=== PATIENT | female | born 1980 | race Caucasian/White ===

== ENCOUNTER 2016-04-21 10:25 | Emergency (ER) | payer MEDICAID ==
--- NOTE | 2016-04-21 10:48 | ER Document Report ---
ED Medical Screen (RME) - General Stated Complaint: ABDOMINAL PAIN Mode of Arrival: Ambulatory Information source: Patient Notes: Patient complains of lower abdominal cramping that started this morning. Patient is currently 6 weeks . Patient denies any vaginal bleeding, discharge or urinary symptoms. I have greeted and performed a rapid initial assessment of this patient. A comprehensive ED assessment and evaluation of the patient, analysis of test results and completion of the medical decision making process will be conducted by additional ED providers. TRAVEL OUTSIDE OF THE [place] IN LAST 30 DAYS: No - Related Data Allergies/Adverse Reactions: acetaminophen [From Vicodin] Allergy (Verified 04/21/16 10:47) hydrocodone bitartrate [From Vicodin] Allergy (Verified 04/21/16 10:47) Penicillins Allergy (Verified 04/21/16 10:47) Past Medical History Pulmonary Medical History: Reports: Hx Asthma Denies: Hx Tuberculosis Psychiatric Medical History: Reports: Hx Anxiety, Hx Depression Past Surgical History: Reports: Hx Section, Hx Cholecystectomy - Immunizations Hx Diphtheria, Pertussis, Tetanus Vaccination: Yes Physical Exam - Vital signs Vitals: Temp Pulse Resp BP 98.0 F 74 18 113/59 L 04/21/16 10:40 04/21/16 10:40 04/21/16 10:40 04/21/16 10:40 - Abdominal Tenderness: Tender - Lower abdomen Course - Vital Signs Vital signs: Temp Pulse Resp BP Pulse Ox 98.0 F 74 18 113/59 L 04/21/16 10:40 04/21/16 10:40 04/21/16 10:40 04/21/16 10:40
[2016-04-21 11:53] LABS: ABSOLUTE EOSINOPHILS # (AUTO) 0.1 10^3/uL (0.0-0.6); ABSOLUTE LYMPHOCYTES (AUTO) 1.7 10^3/uL (0.5-4.7); ABSOLUTE MONOCYTES (AUTO) 0.5 10^3/uL (0.1-1.4); ABSOLUTE NEUT (AUTO) 5.5 10^3/uL (1.7-8.2); BASOPHILS % (AUTO) 0.6 % (0-2); EOSINOPHILS % (AUTO) 1.7 % (0-6); HEMATOCRIT 38.1 % (36.0-47.0); HEMOGLOBIN 12.1 g/dL (12.0-15.5); HGB HCT DIFFERENCE -1.8; LYMPHOCYTES % (AUTO) 21.2 % (13-45); MEAN CORPUSCULAR HEMOGLOBIN 29.8 pg (27.0-33.4); MEAN CORPUSCULAR HGB CONC 31.6 g/dL (32.0-36.0); MEAN CORPUSCULAR VOLUME 94 fl (80-97); MONOCYTES % (AUTO) 6.4 % (3-13); RED BLOOD COUNT 4.05 10^6/uL (3.72-5.28); RED CELL DISTRIBUTION WIDTH 13.2 % (11.5-14.0); SEGMENTED NEUTROPHILS % (AUTO) 70.1 % (42-78); WHITE BLOOD COUNT 7.8 10^3/uL (4.0-10.5)
[2016-04-21 12:00] LABS: APPEARANCE,URINE CLEAR; BILIRUBIN,URINE NEGATIVE (NEGATIVE); GLUCOSE, URINE NEGATIVE (NEGATIVE); KETONES,URINE NEGATIVE (NEGATIVE); LEUKOCYTE ESTERASE,URINE NEGATIVE (NEGATIVE); NITRITE,URINE NEGATIVE (NEGATIVE); PROTEIN,URINE NEGATIVE (NEGATIVE); URINE SPECIFIC GRAVITY 1.001; UROBILINOGEN,URINE NEGATIVE mg/dL (<2.0)
--- NOTE | 2016-04-21 12:05 | ER Document Report ---
ED General - General Chief Complaint: Abdominal Pain Stated Complaint: ABDOMINAL PAIN Time seen by provider: 11:55 Mode of Arrival: Ambulatory Information source: Patient Notes: 35-year-old female last menstrual period March 08 who reports intermittent sharp crampy lower abdominal pain in the midline beginning about 4:00 this morning. The second regnancy first one was full-term . She reports no vaginal bleeding or discharge. She denies fever, chills, nausea, vomiting, cough, shortness breath, chest pain, or back pain. She reports a previous problems with this or pain like this Physical Exam: General: Alert, appears well. HEENT: Normocephalic. Atraumatic. PERRLA. Extraocular movements intact. Oropharynx clear. Neck: Supple. Non-tender. Respiratory: No respiratory distress. Clear and equal breath sounds bilaterally. Cardiovascular: Regular rate and rhythm. Abdominal: Normal Inspection. Soft, mild periumbilical and suprapubic tenderness no distension. Normal Bowel Sounds. Back: Non-tender. No deformity or step off. Pelvic exam. Normal external female genitalia. Trace amount of white discharge and vagina. No cervical motion tenderness. Os closed. No adnexal masses or tenderness. No uterine tenderness. Extremities: Moves all four extremities. Upper extremities: Normal inspection. Non-tender. Normal color. Normal ROM. Normal temperature. Lower extremities: Normal inspection. Non-tender. No edema. Normal color. Normal ROM. Normal temperature. Neurological: Cranial nerves II-XII grossly intact bilaterally. Strength 5/5 throughout. Sensation intact to light touch. Normal cognition. AAOx4. Normal speech. Psychological: Normal affect. Normal Mood. Skin: Warm. Dry. Normal color. TRAVEL OUTSIDE OF THE [place] IN LAST 30 DAYS: No - Related Data Allergies/Adverse Reactions: acetaminophen [From Vicodin] Allergy (Verified 04/21/16 10:47) hydrocodone bitartrate [From Vicodin] Allergy (Verified 04/21/16 10:47) Penicillins Allergy (Verified 04/21/16 10:47) Past Medical History - General Information source: Patient - Social History Smoking Status: Never Smoker Chew tobacco use (# tins/day): No Frequency of alcohol use: None Drug Abuse: None Family History: Reviewed & Not Pertinent Patient has suicidal ideation: No Patient has homicidal ideation: No Pulmonary Medical History: Reports: Hx Asthma Denies: Hx Tuberculosis Renal/ Medical History: Denies: Hx Peritoneal Dialysis Psychiatric Medical History: Reports: Hx Anxiety, Hx Depression Past Surgical History: Reports: Hx Section, Hx Cholecystectomy - Immunizations Hx Diphtheria, Pertussis, Tetanus Vaccination: Yes Physical Exam - Vital signs Vitals: Temp Pulse Resp BP 98.0 F 74 18 113/59 L 04/21/16 10:40 04/21/16 10:40 04/21/16 10:40 04/21/16 10:40 Course - Re-evaluation Re-evalutation: 04/21/16 14:05 OB ultrasound shows 6 week 5 day IUP a small subchorionic bleed patient did not have any vaginal bleeding on exam. Her Darren had no tenderness concerning for appendicitis, renal colic, or other acute abdominal pathology. Patient is cautioned that we have not completely excluded ectopic if she had a twin gestation but this would be extremely remote. He is cautioned that she may go on have a miscarriage but there is nothing that she can do either way about that. She is instructed follow with [facility] for recheck within the next few days or return to emergency department for further problems. Patient has remained nontoxic and hematemesis stable during her stay in emergency department - Vital Signs Vital signs: Temp Pulse Resp BP Pulse Ox 98.0 F 74 18 113/59 L 04/21/16 10:40 04/21/16 10:40 04/21/16 10:40 04/21/16 10:40 - Laboratory Result Diagrams: 04/21/16 11:00 04/21/16 11:00 Laboratory results interpreted by me: 04/21/16 04/21/16 04/21/16 11:00 11:00 11:00 MCHC 31.6 L Beta HCG, Quant 86831.00 H Urine Blood SMALL H 04/21/16 14:05 Wet prep negative for Trichomonas or yeast - Diagnostic Test Radiology reviewed: Reports reviewed Discharge - Discharge Clinical Impression: First trimester Abdominal pain Qualifiers: Abdominal location: unspecified location Qualified Code(s): R10.9 - Unspecified abdominal pain Condition: Stable Disposition: HOME, SELF-CARE Instructions: Abdominal Pain ([facility]) Additional Instructions: You are . care is best started as early in as possible. If you're unsure about continuing this , you should discuss this with your physician or with sports medicine masseur at [facility]. You should take only medications approved by your physician. Acetaminophen can safely be taken for minor pains. As a rule, medication for chronic conditions such as asthma or seizures can safely be continued. You should discuss with the physician every medicine you take. Any regular exercise program can be continued. Talk to your physician, however, before engaging in competitive or demanding sports. Alcohol, smoking, and "street drugs" are dangerous to your baby. Cocaine is especially dangerous. Don't use any illicit drugs! Referrals: APRIL NELSON MD [ACTIVE STAFF] - Follow up as needed
[2016-04-21 12:16] LABS: ALANINE AMINOTRANSFERASE 22 U/L (9-52); ALBUMIN 3.8 g/dL (3.5-5.0); ALKALINE PHOSPHATASE 51 U/L (38-126); ANION GAP 11 (5-19); ASPARTATE AMINO TRANSFERASE 28 U/L (14-36); BILIRUBIN,TOTAL 0.4 mg/dL (0.2-1.3); BLOOD UREA NITROGEN 8 mg/dL (7-20); CARBON DIOXIDE 25 mmol/L (22-30); CHLORIDE 103 mmol/L (98-107); CREATININE RESULT 0.58 mg/dL (0.52-1.25); GLUCOSE 79 mg/dL (75-110); SODIUM 138.8 mmol/L (137-145); TOTAL PROTEIN 6.5 g/dL (6.3-8.2)
[2016-04-21 14:19] VITALS: BP 103/54
[2016-04-21 14:20] LABS: CHLAM PCR NOT DETECTED (NOT DETECT)
== END 2016-04-21 14:18 | disposition home or self-care (01) ==
LOC: ER 10:25
DX: O26.91 Pregnancy related conditions, unspecified, first trimester (principal); R10.9 Unspecified abdominal pain; Z3A.01 Less than 8 weeks gestation of pregnancy; Z88.6 Allergy status to analgesic agent; Z88.0 Allergy status to penicillin; Z90.49 Acquired absence of other specified parts of digestive tract
CPT/HCPCS: 36415; 76817; 80053; 81001; 84702; 85025; 86900; 86901; 87210; 87491; 87591; 99284

== ENCOUNTER 2016-11-10 14:27 | Emergency (ER) | payer MEDICAID ==
[2016-11-10 14:36] VITALS: BP 121/70
--- NOTE | 2016-11-10 15:04 | ER Document Report ---
ED General - General Chief Complaint: Skin Problem Stated Complaint: LEG PAIN Time Seen by Provider: 11/10/16 15:01 Information source: Patient Notes: Patient complains of left leg pain. Pain is mild to moderate. It does radiate down the left leg. It is worse when touched and better when left alone. It is a sharp pain as well as a dull ache. No fevers. Patient is currently 35 weeks . She was diagnosed with an infected hair follicle yesterday and placed on Keflex but felt that there was some worsening redness so she came for evaluation. TRAVEL OUTSIDE OF THE [place] IN LAST 30 DAYS: No - Related Data Allergies/Adverse Reactions: acetaminophen [From Vicodin] Allergy (Verified 11/10/16 14:32) hydrocodone bitartrate [From Vicodin] Allergy (Verified 11/10/16 14:32) Penicillins Allergy (Verified 11/10/16 14:32) Past Medical History - General Information source: Patient - Social History Smoking Status: Never Smoker Frequency of alcohol use: None Drug Abuse: None Family History: Reviewed & Not Pertinent Patient has suicidal ideation: No Patient has homicidal ideation: No Pulmonary Medical History: Reports: Hx Asthma Denies: Hx Tuberculosis Renal/ Medical History: Denies: Hx Peritoneal Dialysis Psychiatric Medical History: Reports: Hx Anxiety, Hx Depression Past Surgical History: Reports: Hx Section, Hx Cholecystectomy - Immunizations Hx Diphtheria, Pertussis, Tetanus Vaccination: Yes Review of Systems - Review of Systems Constitutional: denies: Chills, Fever Cardiovascular: denies: Chest pain, Palpitations Respiratory: denies: Cough, Short of breath Gastrointestinal: denies: Diarrhea, Vomiting Physical Exam - Vital signs Vitals: Temp Pulse Resp BP Pulse Ox 99.4 F 92 16 121/70 99 11/10/16 14:34 11/10/16 14:34 11/10/16 14:34 11/10/16 14:34 11/10/16 14:34 Interpretation: Normal - General General appearance: Appears well, Alert - Respiratory Respiratory status: No respiratory distress Chest status: Nontender Breath sounds: Normal Chest palpation: Normal - Cardiovascular Rhythm: Regular Heart sounds: Normal auscultation Murmur: No - Abdominal Inspection: Normal Distension: No distension Bowel sounds: Normal Tenderness: Nontender Organomegaly: No organomegaly - Skin Skin Temperature: Warm Skin Moisture: Dry Notes: Patient has a small approximate 1 cm indurated area on the left inner upper thigh consistent with an early follicular abscess. Course - Re-evaluation Re-evalutation: 11/10/16 15:03 I used a 25-gauge needle to unroof the top of the follicular abscess with some mild drainage of purulent bloody fluid. - Vital Signs Vital signs: Temp Pulse Resp BP Pulse Ox 99.4 F 92 16 121/70 99 11/10/16 14:34 11/10/16 14:34 11/10/16 14:34 11/10/16 14:34 11/10/16 14:34 Discharge - Discharge Clinical Impression: Folliculitis Condition: Stable Disposition: HOME, SELF-CARE Instructions: Folliculitis ([facility]) Additional Instructions: Please follow-up with your [facility] as scheduled
== END 2016-11-10 15:06 | disposition home or self-care (01) ==
LOC: ER 14:27
DX: O26.93 Pregnancy related conditions, unspecified, third trimester (principal); L73.9 Follicular disorder, unspecified; M79.604 Pain in right leg; Z3A.35 35 weeks gestation of pregnancy; Z88.0 Allergy status to penicillin; Z88.6 Allergy status to analgesic agent
CPT/HCPCS: 99282

== ENCOUNTER 2016-11-23 16:21 | Outpatient (CLI) | payer MEDICAID ==
--- NOTE | 2016-11-23 17:00 | Non Stress Test Report ---
Non Stress Test Datetime Report Generated by CPN: 11/23/2016 17:00 DEMOGRAPHIC EGA NST: 37.1 INDICATION Indication for Study: Ordered by Provider MONITORING Monitor Explained: Monitor Explained; Test Explained; Patient Verbalized Understanding Time on Monitor: 11/23/2016 16:34 Time off Monitor: 11/23/2016 16:54 NST Duration: 20 NST INTERVENTIONS NST Interventions: PO Hydration Physician Notified NST: Dr. Bang BABY A: [id number] BABY A Movement : Present Contraction Frequency : denies FHR Baseline : 125 Accelerations : 15X15 Decelerations : None Variability : Moderate 6-25bpm NST Review: Meets Criteria for Reactive NST NST Review and Verified By : MARCIA Villar Results: Reactive NST REPORT Report Trigger: Send Report
== END 2016-11-23 16:58 | disposition home or self-care (01) ==
LOC: LC 16:21
PROVIDERS: ATTEND Obstetrics & Gynecology
PROC: 4A1HXCZ Monitoring of Products of Conception, Cardiac Rate, External Approach (ICD-10-PCS; principal; 2016-11-23)
DX: Z34.03 Encounter for supervision of normal first pregnancy, third trimester (principal)
CPT/HCPCS: 59025

== ENCOUNTER 2016-11-26 16:58 | Outpatient (CLI) | payer MEDICAID | END 2016-11-26 18:32 | disposition home or self-care (01) | LOC: LC 16:58 | PROVIDERS: ATTEND Student in an Organized Health Care Education/Training Program | PROC: 4A1HXCZ Monitoring of Products of Conception, Cardiac Rate, External Approach (ICD-10-PCS; principal; 2016-11-26) | DX: O99.333 Smoking (tobacco) complicating pregnancy, third trimester (principal); O09.523 Supervision of elderly multigravida, third trimester; F17.210 Nicotine dependence, cigarettes, uncomplicated; Z3A.37 37 weeks gestation of pregnancy | CPT/HCPCS: 59025 ==

== ENCOUNTER 2016-11-30 19:26 | Inpatient (IN) | payer MEDICAID ==
[2016-11-30] MEDS ORDERED: RINGERS SOLUTION,LACTATED 1,000 ML IV PRN (20:00)
[2016-11-30 20:04] LABS: AMNISURE (ROM) POSITIVE (NEGATIVE)
[2016-11-30 20:06] LABS: APPEARANCE,URINE CLEAR; BILIRUBIN,URINE NEGATIVE (NEGATIVE); GLUCOSE, URINE NEGATIVE (NEGATIVE); KETONES,URINE NEGATIVE (NEGATIVE); LEUKOCYTE ESTERASE,URINE NEGATIVE (NEGATIVE); NITRITE,URINE NEGATIVE (NEGATIVE); PROTEIN,URINE NEGATIVE (NEGATIVE); URINE SPECIFIC GRAVITY 1.003; UROBILINOGEN,URINE NEGATIVE mg/dL (<2.0)
[2016-11-30] MEDS ORDERED: CITRIC ACID/SODIUM CITRATE ORAL SOLN 15 ML UDCUP ONE (20:15)
[2016-11-30] MEDS ORDERED: MISOPROSTOL 0.2 MG TABLET ONE (20:15)
[2016-11-30 20:21] LABS: URINE BARBITURATES SCREEN NEGATIVE; URINE METHADONE SCREEN NEGATIVE; URINE PHENCYCLIDINE SCREEN NEGATIVE
[2016-11-30] MEDS ORDERED: CLINDAMYCIN 900 MG/D5W RTU 50 ML IV ONE (20:24)
[2016-11-30 20:28] LABS: URINE OPIATES LOW UNCONFIRMED POSITIVE
[2016-11-30] MEDS ORDERED: KETOROLAC TROMETHAMINE INJ/PF 30 MG/1 ML SDV ONE (20:34)
[2016-11-30] MEDS ORDERED: OXYTOCIN 10 UNIT/ML VIAL ONE (20:34)
[2016-11-30] MEDS ORDERED: ACETAMINOPHEN 100 ML IV ONE (20:35)
[2016-11-30] MEDS ORDERED: OXYTOCIN/NORMAL SALINE 20 UNIT/1,000 ML RTUINJ ONE (20:35)
[2016-11-30] MEDS ORDERED: ONDANSETRON HCL INJ/PF 4 MG/2 ML SDV ONE (20:35)
[2016-11-30] MEDS ORDERED: MIDAZOLAM 2 MG/2 ML INJ ONE (20:35)
[2016-11-30] MEDS ORDERED: FENTANYL CITRATE INJ/PF 100 MCG/2 ML AMPUL ONE ×2 (20:35→23:27)
[2016-11-30] MEDS ORDERED: EPHEDRINE SULFATE INJ 50 MG/1 ML AMPULE ONE (20:35)
[2016-11-30] MEDS ORDERED: FENTANYL CITRATE INJ/PF 250 MCG/5 ML AMPULE ONE (20:35)
[2016-11-30 20:52] LABS: ABSOLUTE EOSINOPHILS # (AUTO) 0.2 10^3/uL (0.0-0.6); ABSOLUTE LYMPHOCYTES (AUTO) 2.5 10^3/uL (0.5-4.7); ABSOLUTE MONOCYTES (AUTO) 0.6 10^3/uL (0.1-1.4); ABSOLUTE NEUT (AUTO) 8.6 10^3/uL (1.7-8.2); BASOPHILS % (AUTO) 0.3 % (0-2); EOSINOPHILS % (AUTO) 1.4 % (0-6); HEMOGLOBIN 9.3 g/dL (12.0-15.5); HGB HCT DIFFERENCE -0.1; LYMPHOCYTES % (AUTO) 21.1 % (13-45); MEAN CORPUSCULAR HEMOGLOBIN 29.6 pg (27.0-33.4); MEAN CORPUSCULAR HGB CONC 33.3 g/dL (32.0-36.0); MEAN CORPUSCULAR VOLUME 89 fl (80-97); MONOCYTES % (AUTO) 5.2 % (3-13); RED BLOOD COUNT 3.15 10^6/uL (3.72-5.28); RED CELL DISTRIBUTION WIDTH 13.7 % (11.5-14.0); WHITE BLOOD COUNT 11.9 10^3/uL (4.0-10.5)
[2016-11-30] MEDS ORDERED: KETAMINE HCL INJ 500 MG/10 ML VIAL ONE (20:56)
[2016-11-30] MEDS ORDERED: MEASLES,MUMPS&RUBELLA VACC/PF 0.5 ML VIAL SUBCUT PRN (21:43)
[2016-11-30] MEDS ORDERED: ACETAMINOPHEN 325 MG TABLET PO PRN (21:43)
[2016-11-30] MEDS ORDERED: OXYTOCIN/NORMAL SALINE 20 UNIT/1,000 ML RTUINJ IV PRN (21:43)
[2016-11-30] MEDS ORDERED: PROMETHAZINE HCL INJ 25 MG/1 ML VIAL IV PRN (21:43)
[2016-11-30] MEDS ORDERED: OXYCODONE-ACETAMINOPHEN 5-325 MG TABLET PO PRN (21:43)
[2016-11-30] MEDS ORDERED: SIMETHICONE 80 MG TAB.CHEW PO PRN (21:43)
[2016-11-30] MEDS ORDERED: DIPH/PERTUSS(ACELL)/TETANUS VAC/PF 0.5 ML SYR (>=10YO) IM PRN (21:43)
--- NOTE | 2016-11-30 21:59 | Delivery Summary ---
Del Sum A-C Datetime Report Generated by CPN: 11/30/2016 21:59 DELIVERY PERSONNEL DELIVERY PERSONNEL: [id number] Delivery Doctor:: Ed Hernandez DO Anesthesiologist:: Antoni Jha MD ADMINISTRATIVE PROGRAM SPECIALIST:: Ian Snell CRNA Labor and Delivery Nurse:: Michelle Meyer RN Labor and Delivery Nurse:: Mary Jacinto RN Neonatal Nurse Practitioner:: MARITZA Clinton Nursery Nurse:: Miya Caraballo RN Fire Observer/OFFICE LEAD: Maximus Currie OFFICE LEAD MATERNAL INFORMATION Delivery Anesthesia: Spinal Medications After Delivery: Pitocin Bolus-Please Comment Maternal Complications: Other Other Maternal Complications: Previous with [facility] LABOR SUMMARY EDC: 12/13/2016 00:00 No. Babies in Womb: 1 Attempted: No Labor Anesthesia: None LABOR INFORMATION Reason for Induction: Not Applicable Onset of Labor: 11/29/2016 18:56 Oxytocin: N/A Group B Beta Strep: Negative Antibiotics # of Doses: 0 Steroids Given: None Reason Steroids Not Administered: Not Applicable MEMBRANES Membranes Rupture Method: Spontaneous Rupture of Membranes: 11/30/2016 18:56 Length of Rupture (hr): 2.18 Amniotic Fluid Color: Clear Amniotic Fluid Amount: None Amniotic Fluid Odor: Normal STAGES OF LABOR Stage 3 hr: 0 Stage 3 min: 0 Total Time in Labor hr: 26 Total Time in Labor min: 11 VAGINAL DELIVERY Episiotomy: None Laceration Extension: N/A Laceration Type: None Laceration Repair: Not Applicable Sponge Count Correct: N/A Sharps Count Correct: N/A CSECTION DELIVERY Primary Indication: Repeat Other Primary Indication: [facility] CSection Urgency: Non-Scheduled CSection Incidence: Repeat Labor: Labor Elective: N/A CSection Incision: Lower Uterine Transverse BABY A INFORMATION Infant Delivery Date/Time: 11/30/2016 21:07 Method of Delivery: Born in Route : No : N/A Forceps: N/A Vacuum Extraction: N/A Shoulder Dystocia : No PRESENTATION/POSITION BABY A Presentation: Cephalic Cephalic Presentation: Vertex Breech Presentation: N/A PLACENTA INFORMATION BABY A Placenta Delivery Time : 11/30/2016 21:07 Placenta Method of Delivery: Manual Removal Placenta Status: Delivered SCORES BABY A Heart Rate 1 min: >100 bpm Resp Effort 1 min: Good Cry Reflex Irritability 1 min: Cough or Sneeze or Pulls Away Muscle Tone 1 min: Active Motion Color 1 min: Body [place], Extremities Blue Resuscitation Effort 1 min: Tactile Stimulation SCORE 1 MIN: 9 Heart Rate 5 min: >100 bpm Resp Effort 5 min: Good Cry Reflex Irritability 5 min: Cough or Sneeze or Pulls Away Muscle Tone 5 min: Active Motion Color 5 min: Body [place], Extremities Blue Resuscitation Effort 5 min: Tactile Stimulation SCORE 5 MIN: 9 INFORMATION BABY A Gestational Age at Delivery: 38.1 Gestational Status: Early Term- 37- 38.6 Weeks Infant Outcome : Liveborn Infant Condition : Stable Sex: Male IDENTIFICATION BABY A Verification Date/Time: 11/30/2016 21:12 ID Band Number: [id number] Mother's Name Verified: Yes RN Verifying : Jocelyne De Luna, MARCIA Additional Verifying Personnel: Marlin Currie CNA WEIGHT/LENGTH BABY A Birthweight (gm): 2970 Weight (lb): 6 Infant Weight (oz): 9 Infant Length (in): 19.50 Infant Length (cm): 49.53 CORD INFORMATION BABY A No. Cord Vessels: 3 Nuchal Cord : Around Neck x1, Loose Cord Blood Taken: Yes-For Storage (Mom's Blood type +) Infant Suction: Mouth; Nose ASSESSMENT BABY A Infant Complications: None Physical Findings at Delivery: Within Normal Limits Infant Respirations: Appears Normal Verification Engineer/ALS Called : No Care By: Jocelyne De Luna RN Transferred To: Nursery BABY B INFORMATION : N/A
--- NOTE | 2016-11-30 23:59 | Admission Physical ---
Datetime Report Generated by CPN: 11/30/2016 23:59 CURRENT ADMISSION Chief Complaint: Suspected Ruptured Membranes Indication for Induction: Not Applicable Admit Plan: Admit to Unit; Initiate Section Protocol ALLERGIES Medication Allergies: Yes Medication Allergies: hydrocodone bitartrate (11/26/2016); Penicillins (11/26/2016) Medication Allergies: hydrocodone bitartrate (11/23/2016); Penicillins (11/23/2016) Medication Allergies: hydrocodone bitartrate (11/10/2016); Penicillins (11/10/2016); acetaminophen (11/10/2016) Medication Allergies: hydrocodone bitartrate (04/21/2016); Penicillins (04/21/2016); acetaminophen (04/21/2016) Latex: No Latex Allergies Food Allergies: N/A Environmental Allergies: N/A OBSTETRICAL HISTORY EDC: 12/13/2016 00:00 : 2 Para: 1 Term: 1 : 0 SAB: 0 IAB: 0 Ectopic: 0 Livin Cesareans: 1 VBACs: 0 Multiple Births: 1 Gestational Diabetes: No Rh Sensitization: No Incompetent Cervix: No JENNY: No Infertility: No ART Treatment: No Uterine Anomaly: No IUGR: No Hx Previous C/S: Yes Macrosomia: No Hx Loss/Stillborn: No PIH: No Hx : No Placenta Previa/Abruption: No Depression/PP Depression: No PTL/PROM: No Post Hemorrhage: No Current Procedures: Ultrasound Obstetrical History Comments: G1: 2004 csection--male 7lb4oz G2: current (R C/S scheduled 12/10/2016) SEE RECORDS Alcohol: No Marijuana : No Cocaine: No Other Illicit Drugs: No Cigarettes: Current Everyday Smoker. 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 Heart Disease: No Hosp/Surgery: Yes Autoimmune Disorder: No Anesthetic Complications: No Kidney Disease: No Abnormal Pap Smear: No Neuro/Epilepsy: No Psychiatric Disorders: Yes Other Medical Diseases: No Hepatitis/Liver Disease: No Significant Family History: Yes Varicosities/Phlebitis: No Trauma/Violence : No Thyroid Dysfunction: No Medical History Comments: anxiety, cholecystectomy 2013, C/S 2004 birthmark removed 1988 INFECTIOUS HISTORY Gonorrhea: No Genital Herpes: No Chlamydia: No Tuberculosis: No Syphilis: No Hepatitis: No HIV/AIDS Exposure: No Rash or Viral Illness: No HPV: No PHYSICAL EXAM General: Normal HEENT: Normal Neurologic: Normal Thyroid: Deferred Heart: Normal Lungs: Normal Breast: Deferred Back: Normal Abdomen: Normal Genitourinary Exam: Normal Extremities: Normal DTRs: Normal Pelvic Type: Adequate Vital Signs: Reviewed; Within Normal Limits VAGINAL EXAM Dilatation: 5 Effacement: 80 Station: -1 MEMBRANES Membranes: Ruptured Amniotic Fluid Color: Clear FETUS A EGA: 38.1 Monitoring: External US FHR- Baseline: 130 Variability: Moderate 6-25bpm Accelerations: 15X15 Decelerations: None FHR Category: Category I Presentation: Vertex Admit Comment: Will proceed with Repeat C/S PLANS FOR LABOR AND DELIVERY Labor and Delivery: None Other Pain Management Plans: unsure Feeding Preference: Breast Circumcision: Yes INFORMED CONSENT Signature: with User ID: [email or web address]
--- NOTE | 2016-12-01 00:05 | Non Stress Test Report ---
Non Stress Test Datetime Report Generated by CPN: 12/01/2016 00:04 DEMOGRAPHIC Test Number: 4 EGA NST: 38.1 EGA NST: 37.4 INDICATION Indication for Study: Ordered by Provider Indication for Study (NST) Other: Labor check [facility] MONITORING Monitor Explained: Monitor Explained; Test Explained; Patient Verbalized Understanding Monitor Explained: Monitor Explained; Test Explained; Patient Verbalized Understanding Time on Monitor: 11/30/2016 19:45 Time on Monitor: 11/26/2016 17:26 Time off Monitor: 11/30/2016 20:15 Time off Monitor: 11/26/2016 18:29 NST Duration: 30 NST Duration: 63 NST INTERVENTIONS NST Interventions: IV Fluids; Reposition Patient NST Interventions: None Physician Notified NST: DrPaula Hernandez BABY A: [id number] BABY A Movement : Present Contraction Frequency : 0 Contraction Frequency : occasional FHR Baseline : 125 FHR Baseline : 115 Accelerations : 15X15 Accelerations : 15X15 Decelerations : None Variability : Moderate 6-25bpm Variability : Moderate 6-25bpm NST Review: Meets Criteria for Reactive NST NST Review: Meets Criteria for Reactive NST NST Review and Verified By : Jocelyne Meyer RN NST Review and Verified By : julia chou NST Results: Reactive NST Results: Reactive NST REPORT Report Trigger: Send Report
[2016-12-01] MEDS: KETOROLAC TROMETHAMINE INJ/PF 30 MG/1 ML SDV IV SCH ×3 (00:18→14:00)
[2016-12-01] MEDS: HYDROMORPHONE HCL INJ/PF 2 MG/ML AMPULE IV PRN ×4 (00:48→17:19)
[2016-12-01] MEDS: OXYCODONE-ACETAMINOPHEN 5-325 MG TABLET PO PRN ×2 (02:55→21:24)
[2016-12-01 06:30] LABS: HEMATOCRIT 25.9 % (36.0-47.0); HEMOGLOBIN 8.7 g/dL (12.0-15.5); HGB HCT DIFFERENCE 0.2; MEAN CORPUSCULAR HEMOGLOBIN 29.6 pg (27.0-33.4); MEAN CORPUSCULAR HGB CONC 33.4 g/dL (32.0-36.0); MEAN CORPUSCULAR VOLUME 89 fl (80-97); RED BLOOD COUNT 2.93 10^6/uL (3.72-5.28); RED CELL DISTRIBUTION WIDTH 13.7 % (11.5-14.0); WHITE BLOOD COUNT 14.9 10^3/uL (4.0-10.5)
[2016-12-01] MEDS: FERROUS SULFATE 325 MG TABLET PO SCH ×2 (10:09→17:21)
[2016-12-01] MEDS: DOCUSATE SODIUM 100 MG CAPSULE PO SCH ×2 (10:09→17:19)
[2016-12-01] MEDS: PRENATAL VITAMIN W-O CA NO5/FE FUMARATE/FA CAPSULE PO SCH (10:10)
--- NOTE | 2016-12-01 12:53 | PDOC PROGRESS REPORT ---
Subjective-OB Subjective: Post Delivery Day: 1 36 year old G2 now P2 s/p repeat LTCS ppd1. Ambulating and voiding without difficulty. Denies any needs at this time Physical Exam (OB) Vital Signs: Temp Pulse Resp BP Pulse Ox 97.4 F 78 16 100/60 97 12/01/16 08:12 12/01/16 08:12 12/01/16 08:12 12/01/16 08:12 12/01/16 08:12 Intake & Output 11/30/16 12/01/16 12/02/16 06:59 06:59 06:59 Intake Total 950 Output Total 1800 Balance -850 Weight 73.75 kg - General General Appearance: Appears well In distress: None - PIH/Pre-Eclampsia Headache: Absent Epigastric Pain: No Visual Changes: No - Dressing Removed: No Incision: Dressing Closure Type: opsite - Lochia Lochia Amount: Small 10-25 ml Lochia Color: Rubra/Red - Abdomen Description: Tender, Soft Fundal Description: Firm Fundal Height: u/u - u/2 - Respiratory Respiratory Status: No respiratory distress - Extremities Upper extremity: Normal inspection Lower extremities: Normal inspection - Neurological Cognition: Normal Orientation: AAOx4 - Psychological Associated symptoms: Normal affect, Normal mood Objective-Diagnostic Laboratory: 12/01/16 06:07 11/30/16 11/30/16 11/30/16 19:38 20:26 20:26 WBC 11.9 H RBC 3.15 L Hgb 9.3 L Hct 28.0 L MCV 89 MCH 29.6 MCHC 33.3 RDW 13.7 Plt Count 255 Seg Neutrophils % 72.0 Lymphocytes % 21.1 Monocytes % 5.2 Eosinophils % 1.4 Basophils % 0.3 Absolute Neutrophils 8.6 H Absolute Lymphocytes 2.5 Absolute Monocytes 0.6 Absolute Eosinophils 0.2 Absolute Basophils 0.0 Urine Color STRAW Urine Appearance CLEAR Urine pH 7.0 Ur Specific [place] 1.003 Urine Protein NEGATIVE Urine Glucose (UA) NEGATIVE Urine Ketones NEGATIVE Urine Blood SMALL H Urine Nitrite NEGATIVE Ur Leukocyte Esterase NEGATIVE Blood Type B POSITIVE Antibody Screen NEGATIVE 12/01/16 06:07 WBC 14.9 H RBC 2.93 L Hgb 8.7 L Hct 25.9 L MCV 89 MCH 29.6 MCHC 33.4 RDW 13.7 Plt Count 239 Seg Neutrophils % Lymphocytes % Monocytes % Eosinophils % Basophils % Absolute Neutrophils Absolute Lymphocytes Absolute Monocytes Absolute Eosinophils Absolute Basophils Urine Color Urine Appearance Urine pH Ur Specific [place] Urine Protein Urine Glucose (UA) Urine Ketones Urine Blood Urine Nitrite Ur Leukocyte Esterase Blood Type Antibody Screen Assessment and Plan(PN) - Assessment and Plan (1) Status post repeat low transverse section Is this a current diagnosis for this admission?: Yes Plan: routine pp care (2) Anemia affecting Qualifiers: Trimester: unspecified trimester Qualified Code(s): O99.019 - Anemia complicating , unspecified trimester Is this a current diagnosis for this admission?: Yes Plan: increase iron supplementation in diet and FeSO4 BID - Time Spent with Patient Time with patient: 15-25 minutes Smoking Education Provided: Over 3 minutes Medications reviewed and adjusted accordingly: Yes - Disposition Anticipated Discharge: Home Within: within 24 hours
[2016-12-01] MEDS ORDERED: IBUPROFEN 800 MG TABLET PO ONE (22:00)
[2016-12-02] MEDS: IBUPROFEN 800 MG TABLET PO SCH ×2 (05:00→12:24)
[2016-12-02] MEDS: OXYCODONE-ACETAMINOPHEN 5-325 MG TABLET PO PRN ×2 (05:01→13:43)
[2016-12-02] MEDS: FERROUS SULFATE 325 MG TABLET PO SCH (09:55)
[2016-12-02] MEDS: DOCUSATE SODIUM 100 MG CAPSULE PO SCH (09:56)
[2016-12-02] MEDS: PRENATAL VITAMIN W-O CA NO5/FE FUMARATE/FA CAPSULE PO SCH (09:56)
--- NOTE | 2016-12-02 10:36 | PDOC PROGRESS REPORT ---
Subjective-OB Subjective: Post Delivery Day: 36 year old. Denies any needs at this time feeling well, ready to go home, baby, scant bleeding, voiding, anxiety under control Physical Exam (OB) Vital Signs: Temp Pulse Resp BP Pulse Ox 97.8 F 73 15 113/71 98 12/02/16 07:44 12/02/16 07:44 12/02/16 07:44 12/02/16 07:44 12/02/16 07:44 Intake & Output 12/01/16 12/02/16 12/03/16 06:59 06:59 06:59 Intake Total 950 350 Output Total 1800 400 Balance -850 -50 Weight 73.75 kg - PIH/Pre-Eclampsia Headache: Absent Epigastric Pain: No Visual Changes: No - Dressing Removed: Yes - Gauze and tape removed; opsite D&I Incision: Dressing Closure Type: opsite - Bilateral Tubal Ligation Dressing Removed: No Site: Dressing - Lochia Lochia Amount: Scant < 10 ml Lochia Color: Rubra/Red - Abdomen Description: Tender, Soft, Round Hernia Present: No Fundal Description: Firm, Midline Fundal Height: u/u - u/2 Objective-Diagnostic Laboratory: 12/01/16 06:07 Assessment and Plan(PN) - Assessment and Plan (1) Gestational diabetes mellitus Qualifiers: Gestational diabetes mellitus control: diet-controlled Trimester: third trimester Qualified Code(s): O24.410 - Gestational diabetes mellitus in , diet controlled Is this a current diagnosis for this admission?: Yes (2) Smoker Is this a current diagnosis for this admission?: Yes (3) Status post repeat low transverse section Is this a current diagnosis for this admission?: Yes (4) Anemia affecting Qualifiers: Trimester: unspecified trimester Qualified Code(s): O99.019 - Anemia complicating , unspecified trimester Is this a current diagnosis for this admission?: Yes - Time Spent with Patient Time with patient: Less than 15 minutes Smoking Education Provided: Over 3 minutes Medications reviewed and adjusted accordingly: Yes - Disposition Anticipated Discharge: Home Within: Other - home today
--- NOTE | 2016-12-02 10:41 | PDOC DISCHARGE SUMMARY ---
Final Diagnosis Discharge Date: 12/02/16 - Final Diagnosis (1) Gestational diabetes mellitus Is this a current diagnosis for this admission?: Yes (2) Smoker Is this a current diagnosis for this admission?: Yes (4) Status post repeat low transverse section Is this a current diagnosis for this admission?: Yes Discharge Data - Discharge Medication Home Medications: Pnv No.122/Iron/Folic Acid [ Multi Tablet] 1 tab PO DAILY 11/26/16 Acetaminophen with Codeine [Tylenol #3 Tablet] 1 each PO PRN PRN 11/30/16 Ibuprofen [Motrin 800 mg Tablet] 800 mg PO Q6 #60 tablet 12/02/16 Oxycodone HCl/Acetaminophen [Percocet 5-325 mg Tablet] 1 tab PO Q4HP PRN #30 tablet 12/02/16 Pnv W-O Ca No5/Fe Fumarate/FA [-U Multiple Vitamin Capsule] 1 cap PO DAILY #60 capsule 12/02/16 Gestational Age: 38 Reason(s) for Admission: Onset of Labor, Ceasarean Section-Repeat, PROM, Gestional Diabetes Procedures: NST, Ultrasound Intrapartum Procedure(s): : Low Cervical, Transverse - [place] Data Baby 1 Male Weight: 2.977 kg Home with Mother: Yes Complications: No - Diagnosis Test Laboratory: Temp Pulse Resp BP Pulse Ox 97.8 F 73 15 113/71 98 12/02/16 07:44 12/02/16 07:44 12/02/16 07:44 12/02/16 07:44 12/02/16 07:44 11/30/16 11/30/16 12/01/16 19:38 20:26 06:07 RBC 3.15 L 2.93 L Hgb 9.3 L 8.7 L Hct 28.0 L 25.9 L Urine Opiates Screen UNCONFIRMED POSITIVE - Discharge information/Instructions Discharge Activity: Balance Activity w/Rest, No Lifting Over 10 Pounds, No Lifting/Push/Pulling, Pelvic Rest Discharge Diet: As Tolerated, Regular Disposition: HOME, SELF-CARE Follow up with: [facility] in: 1, Weeks
[2016-12-02 12:14] VITALS: BP 122/80
[2016-12-06 10:34] LABS: OPIATE CONFIRMATION Positive (.)
--- NOTE | 2017-01-17 09:33 | OPERATIVE REPORT E ---
Operative Report NAME: KAYLA BROWN : 1980 AGE: 36Y DATE OF SURGERY: 11/30/2016 ROOM: 221 PREOPERATIVE DIAGNOSES: 1. A 38-week 1-day intrauterine . 2. History of section, for repeat. 3. Spontaneous rupture of membranes. 4. Active labor. POSTOPERATIVE DIAGNOSES: 1. A 38-week 1-day intrauterine . 2. History of section, for repeat. 3. Spontaneous rupture of membranes. 4. Active labor. SURGEON: Ed Hernandez D.O. AUTOMATIC BEADING LATHE OPERATOR: None. PROCEDURE: Repeat low-transverse section. ANESTHESIA: Spinal. COMPLICATIONS: None. PATHOLOGY: Placenta. ESTIMATED BLOOD LOSS: 600 mL. FINDINGS: 1. A viable male infant at 21:07 hours on 11/30/2016. Apgars 8 at one, 9 at five. 2. Normal-appearing bilateral fallopian tubes and ovaries. PROCEDURE: The patient was taken to the operating room where spinal anesthesia was administered. Once this was done, she was then placed in a dorsal supine position with a leftward tilt upon the operating room table. She was then prepped and draped in a normal sterile fashion. A scalpel was then used to make a Pfannenstiel skin incision. The skin incision was carried down through subcutaneous tissues to the layer of the fascia. The fascia was incised at midline and the fascial incision was then extended bilaterally using the Bovie cautery. The superior fascial edge was grasped with Rob clamps, elevated, and the rectus muscles dissected off sharply and bluntly. Attention was then turned to the inferior fascial edge, which was grasped with Rob clamps, elevated and the rectus muscles dissected off sharply and bluntly. The rectus muscles were then in the midline, peritoneum identified, and entered bluntly with the surgeon's hands. A bladder blade was inserted. A scalpel was then used to make a low transverse hysterotomy incision. The was found to be in the cephalic position and delivered through this incision without difficulty and atraumatically. The nose and mouth were suctioned. The cord was clamped and cut. The was handed off to the awaiting nurses. The placenta was then manually removed from the uterus. The uterus was exteriorized and cleared of all clots and debris. The hysterotomy incision was then reapproximated using 2 layers of 1-0 Vicryl in a running locking fashion, following closely with a second layer. The uterus was then returned to the abdomen. Again the hysterotomy incision was reinspected and found to have excellent hemostasis. The rectus muscles were then reapproximated using 1-0 Vicryl in interrupted sutures. The fascia was then closed using 1-0 Vicryl in a running, non-locking fashion. The subcutaneous space was made hemostatic using Bovie cautery. The skin was then closed with absorbable yusuf, covered with an OpSite, and then with a pressure dressing. At this point in time, the procedure was terminated. All sponge, lap, and needle counts were correct x2. The patient tolerated the procedure well. The patient was taken to recovery room in stable condition. DICTATING PHYSICIAN: Ed Hernandez DO [id number] PHY#: [id number] ID: [id number] JOB#: [id number] ACCT: [id number] cc:Ed Hernandez D.O. >
== END 2016-12-02 13:31 | disposition home or self-care (01) | DRG 766 ==
LOC: LC 19:26 → LR 20:09 → 2S 23:35
PROVIDERS: ADMIT Obstetrics & Gynecology; ATTEND Obstetrics & Gynecology
PROC: 10D00Z1 Extraction of Products of Conception, Low, Open Approach (ICD-10-PCS; principal; 2016-11-30)
PROC: 4A1HXCZ Monitoring of Products of Conception, Cardiac Rate, External Approach (ICD-10-PCS; 2016-11-30)
DX: O34.211 Maternal care for low transverse scar from previous cesarean delivery (principal); O24.420 Gestational diabetes mellitus in childbirth, diet controlled; O42.92 Full-term premature rupture of membranes, unspecified as to length of time between rupture and onset of labor; O99.334 Smoking (tobacco) complicating childbirth; F17.210 Nicotine dependence, cigarettes, uncomplicated; O99.02 Anemia complicating childbirth; D64.9 Anemia, unspecified; O99.344 Other mental disorders complicating childbirth; F41.9 Anxiety disorder, unspecified; Z37.0 Single live birth; Z3A.38 38 weeks gestation of pregnancy; Z90.49 Acquired absence of other specified parts of digestive tract; Z88.0 Allergy status to penicillin; Z88.6 Allergy status to analgesic agent
CPT/HCPCS: 1961; 36415; 59025; 80307; 80361; 81005; 84112; 85025; 85027; 86592; 86850; 86900; 86901; 90715; 94799; G6056; J0131; J1170; J1885; J2250; J2405; J2550; J2590; J3010; J3490; J7120

== ENCOUNTER 2019-02-23 20:08 | Emergency (ER) | payer MEDICAID ==
--- NOTE | 2019-02-23 20:26 | ER Document Report ---
ED Medical Screen (RME) - General Stated Complaint: POSSIBLE MISCARRIAGE Time Seen by Provider: 02/23/19 20:15 Primary Care Provider: YAMILE CABALLERO DO [Primary Care Provider] - Follow up as needed TRAVEL OUTSIDE OF THE [place] IN LAST 30 DAYS: No - HPI Notes: 02/23/19 20:21 Patient is a 38-year-old female G3, P2 unknown weeks of but could be around 6-8wks, but states that she had ultrasounds with noted "empty sacs" by [facility] today with possible miscarriage of one as she is with 'twins.' Last HCG was 50,900 approx performed last wednesday. Her story is somewhat confusing. Patient states that she was very upset with the care and information that she received at [facility] today and went to see an 'elective ultrasound friend' of hers that told her she can see things present (i.e. yolk sac, pole, etc) that the [facility] US were reporting were not there on their scan. Patient is just here to get more clarification as to if she is having a miscarriage or not at this point. She is not bleeding. No fever or abdominal pain. I have treated and performed a rapid initial assessment of this patient. A comprehensive ED assessment and evaluation of the patient, analysis of test results and completion of medical decision making process will be conducted by additional ED providers. PHYSICAL EXAMINATION: GENERAL: Well-appearing, well-nourished and in no acute distress. A&Ox4. Answers questions appropriately. - Related Data Allergies/Adverse Reactions: hydrocodone bitartrate [From Vicodin] Allergy (Verified 02/23/19 20:14) Penicillins Allergy (Verified 02/23/19 20:14) Past Medical History Pulmonary Medical History: Reports: Hx Asthma Denies: Hx Tuberculosis Renal/ Medical History: Denies: Hx Peritoneal Dialysis Psychiatric Medical History: Reports: Hx Anxiety, Hx Depression Past Surgical History: Reports: Hx Section, Hx Cholecystectomy - Immunizations Hx Diphtheria, Pertussis, Tetanus Vaccination: Yes Doctor's Discharge - Discharge Referrals: YAMILE CABALLERO DO [Primary Care Provider] - Follow up as needed
--- NOTE | 2019-02-23 21:46 | RADIOLOGY REPORT (SQ) ---
EXAM DESCRIPTION: RadLex: US TRANSVAGINAL CLINICAL HISTORY: 38 years Female; pregn, ?miscarriage TECHNIQUE: Endovaginal pelvic ultrasound was performed. COMPARISON: 04/21/2016 FINDINGS: Uterus: 9.3 x 4.8 x 7.1 cm. There are 2 intrauterine gestational sacs. These are adjacent to each other in the fundus, with clear septation between the 2. Gestational sac A 1.66 cm, 6 weeks 4 days Gestational sac B 1.41 cm, 6 weeks 2 days Yolk sac or pole is identified in either of these gestational sacs. There is adjacent hemorrhage, 2.6 x 1 x 2.6 cm. Cervix 3 cm, closed Right ovary: 3.9 x 3.5 x 3 cm with a 2 cm cyst. Normal vascular flow on Doppler. Left ovary: 2.9 x 2.2 x 1.9 cm. Normal vascular flow on Doppler. No free fluid. IMPRESSION: 1. 2 intrauterine gestational sacs, neither of which have a yolk sac or pole. Estimated gestational age based on gestational sac size is 6 weeks 2 days and 6 weeks 4 days. 2. Subchorionic hemorrhage 3. There has likely been demise. Please correlate with beta-hCG.
[2019-02-23] MEDS ORDERED: MISOPROSTOL 0.2 MG TABLET PO ONE (22:51)
--- NOTE | 2019-02-23 22:54 | ER Document Report ---
ED General - General Chief Complaint: OB Problem (<20wks) Stated Complaint: POSSIBLE MISCARRIAGE Time Seen by Provider: 02/23/19 20:15 Primary Care Provider: YAMILE CABALLERO DO [Primary Care Provider] - Follow up as needed Notes: JAY NOTE: Patient is a 38-year-old female G3, P2 unknown weeks of but could be around 6-8wks, but states that she had ultrasounds with noted "empty sacs" by [facility] today with possible miscarriage of one as she is with 'twins.' Last HCG was 50,900 approx performed last wednesday. Her story is somewhat confusing. Patient states that she was very upset with the care and information that she received at [facility] today and went to see an 'elective ultrasound friend' of hers that told her she can see things present (i.e. yolk sac, pole, etc) that the AIRPORT [facility] US were reporting were not there on their scan. Patient is just here to get more clarification as to if she is having a miscarriage or not at this point. She is not bleeding. No fever or abdominal pain. MY HPI: Patient is a 38-year-old female G3, P2 presents to the emergency department for potential confirmation of potential miscarriage. Patient voices she was seen [facility] by Dr. agarwal today. Told she was having a miscarriage. States Dr. agarwal gave her no further education or plan as to what was "to happen next." States she did present to a friend who does "ultrasound on the side." States that friends told her that she was able to see gestational sac and poles. States she was still which is why she represents to the emergency department for a second opinion. Patient voices no abdominal pain, she is denying any vaginal discharge to include bleeding. Patient voices her last menstrual cycle was 12/30/2018. TRAVEL OUTSIDE OF THE [place] IN LAST 30 DAYS: No - Related Data Allergies/Adverse Reactions: hydrocodone bitartrate [From Vicodin] Allergy (Verified 02/23/19 20:14) Penicillins Allergy (Verified 02/23/19 20:14) Home Medications: prenantal vitamins Past Medical History - General Information source: Patient Last Menstrual Period: 12/30/18 - Social History Smoking Status: Never Smoker Family History: Reviewed & Not Pertinent Patient has suicidal ideation: No Patient has homicidal ideation: No Pulmonary Medical History: Reports: Hx Asthma Denies: Hx Tuberculosis Renal/ Medical History: Denies: Hx Peritoneal Dialysis Psychiatric Medical History: Reports: Hx Anxiety, Hx Depression Past Surgical History: Reports: Hx Section, Hx Cholecystectomy - Immunizations Hx Diphtheria, Pertussis, Tetanus Vaccination: Yes Review of Systems - Review of Systems Constitutional: denies: Fever EENT: No symptoms reported Cardiovascular: No symptoms reported Respiratory: No symptoms reported Gastrointestinal: See HPI Genitourinary: No symptoms reported Female Genitourinary: See HPI Musculoskeletal: No symptoms reported Skin: No symptoms reported Hematologic/Lymphatic: No symptoms reported Neurological/Psychological: No symptoms reported Physical Exam - Vital signs Vitals: Temp Pulse Resp BP Pulse Ox 98.2 F 81 18 113/70 99 02/23/19 20:21 02/23/19 20:21 02/23/19 20:21 02/23/19 20:21 02/23/19 20:21 - Notes Notes: GENERAL: Alert, interacts well. No acute distress. HEAD: Normocephalic, atraumatic. EYES: Pupils equal, round, and reactive to light. Extraocular movements intact. ENT: Oral mucosa moist, tongue midline. NECK: Full range of motion. Supple. Trachea midline. LUNGS: Clear to auscultation bilaterally, no wheezes, rales, or rhonchi. No respiratory distress. HEART: Regular rate and rhythm. No murmur ABDOMEN: Soft, non-tender. Non-distended. Bowel sounds present in all 4 quadrants. EXTREMITIES: Moves all 4 extremities spontaneously. No edema, normal radial and dorsalis pedis pulses bilaterally. No cyanosis. BACK: no cervical, thoracic, lumbar midline tenderness. No saddle anesthesia, normal distal neurovascular exam. NEUROLOGICAL: Alert and oriented x3. Normal speech. cranial nerves II through XII grossly intact PSYCH: Normal affect, normal mood. SKIN: Warm, dry, normal turgor. No rashes or lesions noted. Course - Re-evaluation Re-evalutation: 02/23/19 23:05 Laboratory 02/23/19 20:26 Beta HCG, Quant 26807.00 H Total Beta HCG POSITIVE Transvaginal US 02/23/19 20:20 IMPRESSION: 1. 2 intrauterine gestational sacs, neither of which have a yolk sac or pole. Estimated gestational age based on gestational sac size is 6 weeks 2 days and 6 weeks 4 days. 2. Subchorionic hemorrhage 3. There has likely been demise. Please correlate with beta-hCG. I have discussed this case with my attending Dr. Albert who has gone into the room to discussed US results and possible treatment plans with the Pt. She is recommending I reach out to OBGYN [facility] manufacturing consultant. I have discussed this case with [facility] Dr. Arana. He is suggesting 0.8 mg of Cytotec. States patient should follow-up in their office in approximately 1 week. I have again discussed this with the Pt. at bedside. I have discussed bleeding precautions and when to return to the emergency department I have also discussed that Dr. Arana would like her in the office within a week. Patient voices understanding, stable for discharge. - Vital Signs Vital signs: Temp Pulse Resp BP Pulse Ox 98.2 F 81 18 113/70 99 02/23/19 20:21 02/23/19 20:21 02/23/19 20:21 02/23/19 20:21 02/23/19 20:21 - Laboratory Laboratory results interpreted by me: 02/23/19 20:26 Beta HCG, Quant 74614.00 H Discharge - Discharge Clinical Impression: Incomplete miscarriage Condition: Stable Disposition: HOME, SELF-CARE Instructions: Miscarriage Impending (OM) Additional Instructions: As we discussed you have been seen and treated in the emergency department for an impending miscarriage. We have given you a medication here that will help your body expel what is in your uterus. This will unfortunately because cramping. Please take 600 mg of Motrin alternated with 1000 mg of Tylenol every 3 hours. Please also stay well-hydrated. Please follow-up with [facility] in 1 week from today. Please return to the emergency department should you bleed through 1 overnight pad in 2 hours. Please also return if you feel lightheaded, weak, dizzy, short of breath or pass out. Please return to the emergency department for any other concerns. Forms: Return to Work Referrals: YAMILE CABALLERO DO [Primary Care Provider] - Follow up as needed ROGELIO ARANA MD [ACTIVE STAFF] - Follow up as needed
[2019-02-23 23:20] VITALS: BP 127/73
== END 2019-02-23 23:20 | disposition home or self-care (01) ==
LOC: ER 20:08
DX: O03.4 Incomplete spontaneous abortion without complication (principal); J45.909 Unspecified asthma, uncomplicated; Z88.5 Allergy status to narcotic agent; Z88.6 Allergy status to analgesic agent
CPT/HCPCS: 36415; 76817; 84702; 93976; 99284

== ENCOUNTER 2019-03-07 11:13 | Day surgery (SDC) | payer MEDICAID ==
[2019-03-07 11:39] LABS: HEMATOCRIT 35.4 % (36.0-47.0); HEMOGLOBIN 12.2 g/dL (12.0-15.5); MEAN CORPUSCULAR HGB CONC 34.4 g/dL (32.0-36.0); MEAN CORPUSCULAR VOLUME 90 fl (80-97); PLATELET COUNT 265 10^3/uL (150-450); RED BLOOD COUNT 3.92 10^6/uL (3.72-5.28); RED CELL DISTRIBUTION WIDTH 13.2 % (11.5-14.0)
[2019-03-07 11:55] LABS: APPEARANCE,URINE SLIGHTLY-CLOUDY; BILIRUBIN,URINE NEGATIVE (NEGATIVE); COLOR,URINE YELLOW; GLUCOSE, URINE NEGATIVE (NEGATIVE); KETONES,URINE TRACE mg/dL (NEGATIVE); LEUKOCYTE ESTERASE,URINE SMALL (NEGATIVE); NITRITE,URINE NEGATIVE (NEGATIVE); PROTEIN,URINE 30 mg/dL (NEGATIVE); URINE SPECIFIC GRAVITY 1.024
[2019-03-07] MEDS ORDERED: ALBUTEROL SULFATE 0.083% NEB 2.5 MG/3 ML AMPUL NEB ONE (12:00)
[2019-03-07] MEDS ORDERED: MIDAZOLAM 2 MG/2 ML INJ ONE ×3 (12:00→13:56)
[2019-03-07] MEDS ORDERED: METOCLOPRAMIDE HCL INJ/PF 10 MG/2 ML SDV ONE (12:00)
[2019-03-07] MEDS ORDERED: FAMOTIDINE INJ/PF 20 MG/2 ML SDV IV ONE (12:01)
[2019-03-07] MEDS ORDERED: FENTANYL CITRATE INJ/PF 100 MCG/2 ML AMPUL ONE (13:56)
[2019-03-07] MEDS ORDERED: ONDANSETRON HCL INJ/PF 4 MG/2 ML SDV ONE (13:56)
[2019-03-07] MEDS ORDERED: DEXAMETHASONE SOD PHOSPHATE INJ 4 MG/1 ML VIAL ONE (13:56)
[2019-03-07] MEDS ORDERED: PROPOFOL INJ 200 MG/20 ML VIAL IV ONE (13:56)
[2019-03-07] MEDS ORDERED: KETOROLAC TROMETHAMINE 60 MG/2 ML SDV ONE (14:02)
[2019-03-07] MEDS ORDERED: FENTANYL CITRATE INJ/PF 100 MCG/2 ML AMPUL IV PRN ×3 (14:37)
[2019-03-07] MEDS ORDERED: DIPHENHYDRAMINE HCL 50 MG/ML VIAL IV PRN (14:37)
[2019-03-07] MEDS ORDERED: ONDANSETRON HCL INJ/PF 4 MG/2 ML SDV IV PRN (14:37)
[2019-03-07] MEDS ORDERED: MEPERIDINE HCL/PF INJ 25 MG/1 ML DISP.SYRIN IV PRN (14:37)
[2019-03-07] MEDS ORDERED: MORPHINE SULFATE 10 MG/ML INJ IV PRN (14:37)
[2019-03-07] MEDS ORDERED: OXYCODONE-ACETAMINOPHEN 5-325 MG TABLET PO PRN ×2 (14:37)
--- NOTE | 2019-03-07 15:08 | Operative Report ---
Operative Report DATE OF SURGERY: 03/07/19 PREOPERATIVE DIAGNOSIS: Missed at approximately 6-7 weeks EGA POSTOPERATIVE DIAGNOSIS: Same as above OPERATION: Suction Dilation and curettage SURGEON: NEL VU ANESTHESIA: Moderate Sedation TISSUE REMOVED OR ALTERED: Products of conception: -Fresh for chromosomes. - Tissue for pathology COMPLICATIONS: None ESTIMATED BLOOD LOSS: 50 ml INTRAOPERATIVE FINDINGS: Uterus small and approximately 7-8 wks size. Cervix closed PROCEDURE: IV fluids: Crystalloid IV fluids per anesthesia record Disposition: To recovery room in stable condition Description of the procedure: The patient was taken to the operating room where monitored anesthesia was administered and found to be adequate. She was then placed in the dorsol lithotomy position and prepped and draped in the usual sterile fashion. A timeout was taken. A weighted speculum was placed in the vagina and a Parker retractor was used to bring the cervix into good view. A single-tooth tenaculum was used to grasp the anterior lip of the cervix and the cervix was serially dilated. The uterus sounded to approximately 8.5 cm and the cervix was serially dilated to approximately 8mm. The #8 suction curette was inserted and using suction, the products of conception were removed. The suction curette was removed and a regular curette was advanced to the uterine fundus. Gentle curettage was done in a circumferential manner until a gritty texture was noted. The curette was removed and suction curette re-inserted to the fundus. Suction curettage done once more. The tissue obtained will be sent to the lab as products of conception. Part of sample sent fresh for Chromosomes. The procedure was then terminated all instrument to remove the patient's vagina. The patient tolerated the procedure well all instrument sponge and needle counts were correct x2 for the procedure she will proceed to recovery room in stable condition
--- NOTE | 2019-03-07 15:12 | PDOC DISCHARGE SUMMARY ---
Impression - Admit/DC Date/PCP Admission Date/Primary Care Provider: 03/07/19 Discharge Date: 03/07/19 - Additional Information Resuscitation Status: Full Code Discharge Diet: As Tolerated Discharge Activity: Activity As Tolerated - Diet as tolerated Nothing in vagina for 6 weeks Metronidazole 500mg BID for 5 days: AVOID ALCOHOL WHILE TAKING Ibuprofen 800mg PRN Prescriptions: Metronidazole [Flagyl 500 mg Tablet] 500 mg PO BID #10 tablet Ibuprofen [Ibu] 800 mg PO Q8 30 Days #30 tablet Home Medications: Ibuprofen [Motrin 800 mg Tablet] 800 mg PO Q6 #60 tablet 12/02/16 Ibuprofen [Ibu] 800 mg PO Q8 30 Days #30 tablet 03/07/19 Metronidazole [Flagyl 500 mg Tablet] 500 mg PO BID #10 tablet 03/07/19 History of Present Illiness History of Present Illness: KAYLA BROWN is a 38 year old female Physical Exam - Physical Exam Vital Signs: Temp Pulse Resp BP Pulse Ox 98.5 F 61 14 105/53 L 99 03/07/19 11:30 03/07/19 11:30 03/07/19 11:30 03/07/19 11:30 03/07/19 11:30 Intake & Output 03/06/19 03/07/19 03/08/19 06:59 06:59 06:59 Intake Total 0 Balance 0 Weight 65.9 kg Results Laboratory Results: WBC 7.0 10^3/uL (4.0-10.5) 03/07/19 11:23 RBC 3.92 10^6/uL (3.72-5.28) 03/07/19 11:23 Hgb 12.2 g/dL (12.0-15.5) 03/07/19 11:23 Hct 35.4 % (36.0-47.0) L 03/07/19 11:23 MCV 90 fl (80-97) 03/07/19 11:23 MCH 31.0 pg (27.0-33.4) 03/07/19 11:23 MCHC 34.4 g/dL (32.0-36.0) 03/07/19 11:23 RDW 13.2 % (11.5-14.0) 03/07/19 11:23 Plt Count 265 10^3/uL (150-450) 03/07/19 11:23 Urine Color YELLOW 03/07/19 11:40 Urine Appearance SLIGHTLY-CLOUDY 03/07/19 11:40 Urine pH 5.0 (5.0-9.0) 03/07/19 11:40 Ur Specific [place] 1.024 03/07/19 11:40 Urine Protein 30 mg/dL (NEGATIVE) H 03/07/19 11:40 Urine Glucose (UA) NEGATIVE mg/dL (NEGATIVE) 03/07/19 11:40 Urine Ketones TRACE mg/dL (NEGATIVE) H 03/07/19 11:40 Urine Blood LARGE (NEGATIVE) H 03/07/19 11:40 Urine Nitrite NEGATIVE (NEGATIVE) 03/07/19 11:40 Urine Bilirubin NEGATIVE (NEGATIVE) 03/07/19 11:40 Urine Urobilinogen 2.0 mg/dL (<2.0) H 03/07/19 11:40 Ur Leukocyte Esterase SMALL (NEGATIVE) H 03/07/19 11:40 Urine WBC (Auto) 7 /HPF 03/07/19 11:40 Urine RBC (Auto) 22 /HPF 03/07/19 11:40 Squamous Epi Cells Auto 2 /HPF 03/07/19 11:40 Urine Mucus (Auto) MANY /LPF 03/07/19 11:40 Urine Ascorbic Acid 20 (NEGATIVE) H 03/07/19 11:40 Urine HCG, Qual POSITIVE (NEGATIVE) H 03/07/19 11:40 Blood Type B POSITIVE 03/07/19 11:23 Antibody Screen NEGATIVE 03/07/19 11:23 Stroke Is this a Stroke Patient?: No Acute Heart Failure - Is this a Heart Failure Patient?: No
[2019-03-07 17:42] VITALS: BP 100/65
[2019-03-07] MEDS ORDERED: IBUPROFEN 800 MG TABLET PO SCH (18:00)
== END 2019-03-07 16:35 | disposition home or self-care (01) ==
LOC: OROUT 11:13
PROVIDERS: ATTEND Obstetrics & Gynecology
DX: O02.1 Missed abortion (principal); Z87.891 Personal history of nicotine dependence; Z88.0 Allergy status to penicillin; Z88.5 Allergy status to narcotic agent; Z88.6 Allergy status to analgesic agent
CPT/HCPCS: 86900; 86901; 36415; 86850; 85027; 81025; 81001; 88233; 88262; 88305 ×2; 01965; 59820; J2250; J1100; J1885; J3010; J2765; J2405; J2704; S0028; 1965

== ENCOUNTER 2019-03-16 00:26 | Emergency (ER) | payer MEDICAID ==
[2019-03-16 00:39] VITALS: BP 120/76
== END 2019-03-16 02:10 | disposition left against medical advice (07) ==
LOC: ER 00:26
DX: Z53.21 Procedure and treatment not carried out due to patient leaving prior to being seen by health care provider (principal)

== ENCOUNTER 2019-05-06 15:07 | Emergency (ER) | payer MEDICAID ==
[2019-05-06] MEDS ORDERED: ACETAMINOPHEN 325 MG TABLET PO ONE (15:52)
--- NOTE | 2019-05-06 15:53 | ER Document Report ---
ED Medical Screen (RME) - General Chief Complaint: Vaginal Bleeding Stated Complaint: VAGINAL BLEEDING Time Seen by Provider: 05/06/19 15:49 Mode of Arrival: Ambulatory Information source: Patient Notes: 38-year-old female G4, P2 approximately 6 weeks presents emergency department with complaints of vaginal bleeding abdominal pain and possible miscarriage. She reports she just had a miscarriage in the toilet when she arrived here. Reports she was in February and had a miscarriage. They got right away. 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 Patient very emotional. I have greeted and performed a rapid initial assessment of this patient. A comprehensive ED assessment and evaluation of the patient, analysis of test results and completion of the medical decision making process will be conducted by additional ED providers. TRAVEL OUTSIDE OF THE [place] IN LAST 30 DAYS: No - Related Data Allergies/Adverse Reactions: hydrocodone bitartrate [From Vicodin] Allergy (Verified 02/23/19 20:14) Penicillins Allergy (Verified 02/23/19 20:14) Home Medications: Past Medical History - Social History Frequency of alcohol use: None - Past Medical History Cardiac Medical History: Denies: Hx Coronary Artery Disease, Hx Heart Attack, Hx Hypertension Pulmonary Medical History: Reports: Hx Asthma - A CHILD Denies: Hx Bronchitis, Hx COPD, Hx Pneumonia, Hx Tuberculosis Neurological Medical History: Denies: Hx Cerebrovascular Accident, Hx Seizures Renal/ Medical History: Denies: Hx Peritoneal Dialysis Musculoskeltal Medical History: Denies Hx Arthritis Psychiatric Medical History: Reports: Hx Anxiety, Hx Depression Past Surgical History: Reports: Hx Section, Hx Cholecystectomy - Immunizations Hx Diphtheria, Pertussis, Tetanus Vaccination: Yes Physical Exam - Vital signs Vitals: Temp Pulse Resp BP Pulse Ox 99.3 F 117 H 20 134/83 H 98 05/06/19 15:11 05/06/19 15:11 05/06/19 15:11 05/06/19 15:11 05/06/19 15:11 Course - Vital Signs Vital signs: Temp Pulse Resp BP Pulse Ox 99.3 F 117 H 20 134/83 H 98 05/06/19 15:11 05/06/19 15:11 05/06/19 15:11 05/06/19 15:11 05/06/19 15:11
[2019-05-06 17:04] LABS: ABSOLUTE EOSINOPHILS # (AUTO) 0.2 10^3/uL (0.0-0.6); ABSOLUTE LYMPHOCYTES (AUTO) 1.7 10^3/uL (0.5-4.7); ABSOLUTE MONOCYTES (AUTO) 0.5 10^3/uL (0.1-1.4); BASOPHILS % (AUTO) 0.5 % (0-2); EOSINOPHILS % (AUTO) 2.8 % (0-6); HEMATOCRIT 38.4 % (36.0-47.0); HEMOGLOBIN 13.2 g/dL (12.0-15.5); LYMPHOCYTES % (AUTO) 22.6 % (13-45); MEAN CORPUSCULAR HGB CONC 34.3 g/dL (32.0-36.0); MEAN CORPUSCULAR VOLUME 90 fl (80-97); MONOCYTES % (AUTO) 6.4 % (3-13); PLATELET COUNT 227 10^3/uL (150-450); RED BLOOD COUNT 4.25 10^6/uL (3.72-5.28); RED CELL DISTRIBUTION WIDTH 13.2 % (11.5-14.0); SEGMENTED NEUTROPHILS % (AUTO) 67.7 % (42-78); TOTAL CELLS COUNTED % (AUTO) 100 %; WHITE BLOOD COUNT 7.4 10^3/uL (4.0-10.5)
[2019-05-06 17:19] LABS: ALBUMIN 4.1 g/dL (3.5-5.0); ALKALINE PHOSPHATASE 59 U/L (38-126); ANION GAP 7 (5-19); ASPARTATE AMINO TRANSFERASE 23 U/L (14-36); BILIRUBIN,TOTAL 0.3 mg/dL (0.2-1.3); BLOOD UREA NITROGEN 3 mg/dL (7-20); CALCIUM 9.1 mg/dL (8.4-10.2); CARBON DIOXIDE 27 mmol/L (22-30); CHLORIDE 104 mmol/L (98-107); GLUCOSE 81 mg/dL (75-110); POTASSIUM 3.6 mmol/L (3.6-5.0); TOTAL PROTEIN 6.8 g/dL (6.3-8.2)
--- NOTE | 2019-05-06 18:01 | RADIOLOGY REPORT (SQ) ---
EXAM DESCRIPTION: U/S OB TRANSVAGINAL W/O DOP COMPLETED DATE/TIME: 05/06/2019 5:44 pm REASON FOR STUDY: vag bleed preg, miscarriage COMPARISON: None. TECHNIQUE: Transvaginal static and realtime grayscale images acquired of the pelvis. Additional austin cted spectral and color Doppler images recorded. All images stored on PACs. bHCG: Not available. CLINICAL DATES: 5 week 6 day. LIMITATIONS: None. FINDINGS: FETUS: Single Living intrauterine . ULTRASOUND EGA: 6 week 3 day. ULTRASOUND ANDREE: 12/27/2019. EFW: Not applicable less than 20 weeks. CRL: 0.63 cm. FHR: 109 beats per minute. SURVEY: No visualized anomalies. AMNIOTIC FLUID: Adequate amount. PLACENTA: Not yet developed due to early gestation. SUBCHORIONIC BLEED: No. SIZE OF BLEED: Not applicable. UTERUS: No masses. No anomalies. CERVICAL LENGTH: 3.1 cm. Closed. RIGHT ADNEXA: Normal ovary with normal vascular flow. No adnexal free fluid. 2.3 cm cyst. LEFT ADNEXA: Ovary not identified due to poor acoustical window. No adnexal free fluid. No adnexal masses. FREE FLUID: Small amount of free fluid. OTHER: No other significant finding. IMPRESSION: LIVING INTRAUTERINE . EGA 6 WEEK 3 DAY. Trimester of : First trimester - 0 to 13 weeks. TECHNICAL DOCUMENTATION: JOB ID: [id number] [employer]- All Rights Reserved rev-08/20 Reading location - IP/workstation name: [email or web address]
--- NOTE | 2019-05-06 18:37 | ER Document Report ---
ED General - General Chief Complaint: Vaginal Bleeding Stated Complaint: VAGINAL BLEEDING Time Seen by Provider: 05/06/19 15:49 Primary Care Provider: MIGUEL ADAM MD [Primary Care Provider] - Follow up as needed Mode of Arrival: Ambulatory TRAVEL OUTSIDE OF THE [place] IN LAST 30 DAYS: No - HPI Notes: Patient is a G4, P2 female at approximately 6 weeks gestation who presents emergency department for evaluation of vaginal bleeding. She states she was going about her normal day today when she felt a pain shoot down to her pelvis. She passed 3 large blood clots. She states she is had very scant bleeding since then. She denies any pain at this time. She states she did have some cramping earlier. She had a miscarriage at the end of last year, required a D&C for treatment. She been taking her multivitamins, following up with OB. She actumina reesey had her first ultrasound earlier this week and a heart beat was noted. - Related Data Allergies/Adverse Reactions: hydrocodone bitartrate [From Vicodin] Allergy (Verified 02/23/19 20:14) Penicillins Allergy (Verified 02/23/19 20:14) Home Medications: vitamin, Diclegis Past Medical History - General Information source: Patient Last Menstrual Period: 03/26/19 - Social History Smoking Status: Never Smoker Frequency of alcohol use: None Family History: Reviewed & Not Pertinent Patient has suicidal ideation: No Patient has homicidal ideation: No - Past Medical History Cardiac Medical History: Denies: Hx Coronary Artery Disease, Hx Heart Attack, Hx Hypertension Pulmonary Medical History: Reports: Hx Asthma - A CHILD Denies: Hx Bronchitis, Hx COPD, Hx Pneumonia, Hx Tuberculosis Neurological Medical History: Denies: Hx Cerebrovascular Accident, Hx Seizures Renal/ Medical History: Denies: Hx Peritoneal Dialysis Musculoskeletal Medical History: Denies Hx Arthritis Psychiatric Medical History: Reports: Hx Anxiety, Hx Depression Past Surgical History: Reports: Hx Section, Hx Cholecystectomy - Immunizations Hx Diphtheria, Pertussis, Tetanus Vaccination: Yes Review of Systems - Review of Systems Constitutional: No symptoms reported EENT: No symptoms reported Cardiovascular: No symptoms reported Respiratory: No symptoms reported Gastrointestinal: No symptoms reported Genitourinary: No symptoms reported Female Genitourinary: See HPI Skin: No symptoms reported Neurological/Psychological: No symptoms reported Physical Exam - Vital signs Vitals: Temp Pulse Resp BP Pulse Ox 99.3 F 117 H 20 134/83 H 98 05/06/19 15:11 05/06/19 15:11 05/06/19 15:11 05/06/19 15:11 05/06/19 15:11 - Notes Notes: Vital signs reviewed, please refer to chart. Head is normocephalic, atraumatic. Pupils equal round, reactive to light. Neck is supple without meningismus. Heart is regular rate and rhythm. Lungs are clear to auscultation bilaterally. Abdomen is soft, nontender, normoactive bowel sounds throughout. Extremities without cyanosis, clubbing. Posterior calves are nontender. Peripheral pulses are equal. Skin is warm and dry. Course - Re-evaluation Re-evalutation: 05/06/19 18:35 Patient presents emergency department for evaluation. She had laboratory inves tigations and imaging as ordered through triage. Intrauterine with strong heart tones was noted on ultrasound, beta is appropriate. Findings were explained to the patient. She is to follow-up with her OB this week, return to the ED with worsening. She is amenable to this plan was discharged. - Vital Signs Vital signs: Temp Pulse Resp BP Pulse Ox 99.3 F 117 H 20 134/83 H 98 05/06/19 15:11 05/06/19 15:11 05/06/19 15:11 05/06/19 15:11 05/06/19 15:11 - Laboratory Result Diagrams: 05/06/19 16:45 05/06/19 16:45 Laboratory results interpreted by me: 05/06/19 16:45 BUN 3 L Beta HCG, Quant 67014.00 H - Diagnostic Test Radiology reviewed: Reports reviewed Radiology results interpreted by me: 05/06/19 18:36 Obstetrics Ultrasound 05/06/19 15:51 IMPRESSION: LIVING INTRAUTERINE . EGA 6 WEEK 3 DAY. Trimester of : First trimester - 0 to 13 weeks. Discharge - Discharge Clinical Impression: First-trimester bleeding Condition: Stable Disposition: HOME, SELF-CARE Instructions: Bleeding During Early ([facility]) Additional Instructions: Your quantitative beta today was 39,365. Rest, stay well-hydrated, continue your vitamins. Follow-up with your OB this week. Return to the emergency department with worsening or new concerning symptoms of any sort. Forms: Return to Work Referrals: MIGUEL ADAM MD [Primary Care Provider] - Follow up as needed
[2019-05-06 19:13] VITALS: BP 96/61
== END 2019-05-06 19:11 | disposition home or self-care (01) ==
LOC: ER 15:07
DX: O20.9 Hemorrhage in early pregnancy, unspecified (principal); O26.891 Other specified pregnancy related conditions, first trimester; R10.2 Pelvic and perineal pain; Z3A.01 Less than 8 weeks gestation of pregnancy; Z87.59 Personal history of other complications of pregnancy, childbirth and the puerperium; Z88.6 Allergy status to analgesic agent; Z88.5 Allergy status to narcotic agent; Z88.0 Allergy status to penicillin; Z79.899 Other long term (current) drug therapy
CPT/HCPCS: 99284; 86900; 86901; 36415; 84702; 85025; 80053; 76817; J3490

== ENCOUNTER 2019-07-08 11:42 | Emergency (ER) | payer MEDICAID ==
--- NOTE | 2019-07-08 12:05 | ER Document Report ---
ED Medical Screen (RME) - General Chief Complaint: OB Problem (<20wks) Stated Complaint: OB PROBLEM Time Seen by Provider: 07/08/19 11:58 Primary Care Provider: MIGUEL ADAM MD [Primary Care Provider] - Follow up as needed Mode of Arrival: Ambulatory Information source: Patient Notes: 39-year-old female G4, P2 presents approximately 15 weeks with reports of no movement for the past 48 hours. She also reports her breasts are not hurting, she is not nauseated like she usually is. She reports she feels empty. She reports last night she had some very low back pain intense no back pain today. She also reports she had some clear discharge yesterday. Denies fever. Denies trauma. Reports miscarriage this past March with twins. I have greeted and performed a rapid initial assessment of this patient. A comprehensive ED assessment and evaluation of the patient, analysis of test results and completion of the medical decision making process will be conducted by additional ED providers. TRAVEL OUTSIDE OF THE [place] IN LAST 30 DAYS: No - Related Data Allergies/Adverse Reactions: hydrocodone bitartrate [From Vicodin] Allergy (Verified 07/08/19 11:56) Penicillins Allergy (Verified 07/08/19 11:56) Past Medical History - Social History Chew tobacco use (# tins/day): No Frequency of alcohol use: None Drug Abuse: None - Past Medical History Cardiac Medical History: Denies: Hx Coronary Artery Disease, Hx Heart Attack, Hx Hypertension Pulmonary Medical History: Reports: Hx Asthma - A CHILD Denies: Hx Bronchitis, Hx COPD, Hx Pneumonia, Hx Tuberculosis Neurological Medical History: Denies: Hx Cerebrovascular Accident, Hx Seizures Renal/ Medical History: Denies: Hx Peritoneal Dialysis Musculoskeltal Medical History: Denies Hx Arthritis Psychiatric Medical History: Reports: Hx Anxiety, Hx Depression Past Surgical History: Reports: Hx Section, Hx Cholecystectomy - Immunizations Hx Diphtheria, Pertussis, Tetanus Vaccination: Yes Physical Exam - Vital signs Vitals: Temp Pulse Resp BP Pulse Ox 98.8 F 104 H 20 110/70 100 07/08/19 11:46 07/08/19 11:46 07/08/19 11:46 07/08/19 11:46 07/08/19 11:46 Course - Vital Signs Vital signs: Temp Pulse Resp BP Pulse Ox 98.8 F 104 H 20 110/70 100 07/08/19 11:46 07/08/19 11:46 07/08/19 11:46 07/08/19 11:46 07/08/19 11:46 Doctor's Discharge - Discharge Referrals: MIGUEL ADAM MD [Primary Care Provider] - Follow up as needed
[2019-07-08 12:30] LABS: ABSOLUTE EOSINOPHILS # (AUTO) 0.1 10^3/uL (0.0-0.6); ABSOLUTE LYMPHOCYTES (AUTO) 1.6 10^3/uL (0.5-4.7); ABSOLUTE MONOCYTES (AUTO) 0.4 10^3/uL (0.1-1.4); ABSOLUTE NEUT (AUTO) 6.9 10^3/uL (1.7-8.2); BASOPHILS % (AUTO) 0.4 % (0-2); EOSINOPHILS % (AUTO) 1.5 % (0-6); HEMATOCRIT 34.9 % (36.0-47.0); HEMOGLOBIN 12.1 g/dL (12.0-15.5); LYMPHOCYTES % (AUTO) 17.6 % (13-45); MEAN CORPUSCULAR HEMOGLOBIN 31.1 pg (27.0-33.4); MEAN CORPUSCULAR HGB CONC 34.7 g/dL (32.0-36.0); MEAN CORPUSCULAR VOLUME 90 fl (80-97); MONOCYTES % (AUTO) 4.7 % (3-13); PLATELET COUNT 219 10^3/uL (150-450); RED BLOOD COUNT 3.89 10^6/uL (3.72-5.28); RED CELL DISTRIBUTION WIDTH 13.7 % (11.5-14.0); SEGMENTED NEUTROPHILS % (AUTO) 75.8 % (42-78); TOTAL CELLS COUNTED % (AUTO) 100 %; WHITE BLOOD COUNT 9.1 10^3/uL (4.0-10.5)
[2019-07-08 12:46] LABS: ALBUMIN 3.8 g/dL (3.5-5.0); ALKALINE PHOSPHATASE 62 U/L (38-126); ANION GAP 6 (5-19); ASPARTATE AMINO TRANSFERASE 19 U/L (14-36); BILIRUBIN,DIRECT 0.2 mg/dL (0.0-0.4); BILIRUBIN,TOTAL 0.3 mg/dL (0.2-1.3); BLOOD UREA NITROGEN 6 mg/dL (7-20); CARBON DIOXIDE 24 mmol/L (22-30); CHLORIDE 106 mmol/L (98-107); GLUCOSE 89 mg/dL (75-110); TOTAL PROTEIN 6.9 g/dL (6.3-8.2)
--- NOTE | 2019-07-08 12:56 | RADIOLOGY REPORT (SQ) ---
EXAM DESCRIPTION: U/S OB LIMITED IMAGES COMPLETED DATE/TIME: 07/08/2019 12:34 pm REASON FOR STUDY: no movement 48 hrs COMPARISON: 05/06/2019 TECHNIQUE: Limited transabdominal grayscale ultrasound for evaluation of specific requested obstetri jihan parameters. LIMITATIONS: None. FINDINGS: CERVICAL LENGTH: 3.5 cm Closed. MART: LVP 3.6 x 7 cm FHR: 141 beats per minute. PRESENTATION: Cephalic. PLACENTA: Anterior ANATOMY: Not assessed OTHER: Estimated age 15 weeks 3 days IMPRESSION: Living 15 week 3 day IUP, heart rate 141 beats per minute Trimester of : Second trimester - 13 weeks 1 day to 27 weeks 6 days. TECHNICAL DOCUMENTATION: JOB ID: [id number] 2010 [employer]- All Rights Reserved Reading location - IP/workstation name: [email or web address]
--- NOTE | 2019-07-08 14:03 | ER Document Report ---
Entered by JOSE RAFAEL VANESSA SCRIBE 07/08/19 1256 Acting as scribe for:NEELIMA SARKAR MD ED General - General Chief Complaint: OB Problem (<20wks) Stated Complaint: OB PROBLEM Time Seen by Provider: 07/08/19 11:58 Primary Care Provider: MIGUEL ADAM MD [Primary Care Provider] - Follow up as needed Mode of Arrival: Ambulatory Information source: Patient Notes: This 39-year-old female ( P:2 A:1) who is 15 weeks presents to the emergency department worried about a possible miscarriage. Patient explains that she has been told she is a threatened miscarriage patient due to her bleeding 10-12 times during the and her age. Patient states that up until today, she would wake up with nausea and vomiting but today she did not feel these symptoms. Patient said that a week ago, she could feel the baby moving but has not felt the baby move for two days. Patient said that yesterday she had pain in her lower back and vaginal discharge. Patient also mentions that today her breasts are not sore and she "just feels empty". Patient denies dysuria. TRAVEL OUTSIDE OF THE [place] IN LAST 30 DAYS: No - Related Data Allergies/Adverse Reactions: hydrocodone bitartrate [From Vicodin] Allergy (Verified 07/08/19 11:56) Penicillins Allergy (Verified 07/08/19 11:56) Past Medical History - General Information source: Patient - Social History Smoking Status: Never Smoker Cigarette use (# per day): No Chew tobacco use (# tins/day): No Frequency of alcohol use: None Drug Abuse: None Lives with: Family Family History: Reviewed & Not Pertinent Patient has suicidal ideation: No Patient has homicidal ideation: No Pulmonary Medical History: Reports: Hx Asthma - A CHILD Psychiatric Medical History: Reports: Hx Anxiety, Hx Depression Past Surgical History: Reports: Hx Section, Hx Cholecystectomy - Immunizations Hx Diphtheria, Pertussis, Tetanus Vaccination: Yes Review of Systems - Review of Systems Constitutional: No symptoms reported EENT: No symptoms reported Cardiovascular: No symptoms reported Respiratory: No symptoms reported Gastrointestinal: See HPI. denies: Nausea, Vomiting Genitourinary: denies: Dysuria Female Genitourinary: See HPI, , Vaginal discharge, Vaginal bleeding Musculoskeletal: See HPI, Back pain Skin: No symptoms reported Hematologic/Lymphatic: No symptoms reported Neurological/Psychological: No symptoms reported -: Yes All other systems reviewed and negative Physical Exam - Vital signs Vitals: Temp Pulse Resp BP Pulse Ox 98.8 F 104 H 20 110/70 100 07/08/19 11:46 07/08/19 11:46 07/08/19 11:46 07/08/19 11:46 07/08/19 11:46 - Notes Notes: Physical Exam: General: Alert, appears well. HEENT: Normocephalic. Atraumatic. PERRL. Extraocular movements intact. Oropharynx clear. Neck: Supple. Non-tender. Respiratory: No respiratory distress. Clear and equal breath sounds bilaterally. Cardiovascular: Regular rate and rhythm. Grade 1/6 murmur noted. Abdominal: Gravid Female. Non-tender. Normal Bowel Sounds. Back: No gross abnormalities. Extremities: Moves all four extremities. Upper extremities: Normal inspection. Normal ROM. Lower extremities: Normal inspection. No edema. Normal ROM. Neurological: Normal cognition. AAOx4. Normal speech. Psychological: Normal affect. Normal Mood. Skin: Warm. Dry. Normal color. Course - Re-evaluation Re-evalutation: 07/08/19 13:58 Patient resting comfortably not showing any signs of distress at this time no pelvic or abdominal pain no nausea vomiting and no vaginal discharge or bleeding. - Vital Signs Vital signs: Temp Pulse Resp BP Pulse Ox 98.8 F 104 H 20 110/70 100 07/08/19 11:46 07/08/19 11:46 07/08/19 11:46 07/08/19 11:46 07/08/19 11:46 - Laboratory Result Diagrams: 07/08/19 12:05 07/08/19 12:05 Laboratory results interpreted by me: 07/08/19 07/08/19 12:05 12:05 Hct 34.9 L Sodium 135.8 L BUN 6 L - Diagnostic Test Radiology reviewed: Image reviewed, Reports reviewed Radiology results interpreted by ma: 07/08/19 13:59 Pelvic oh the ultrasound disclosed an intrauterine 15 weeks 3 days with a heart rate of 141 no complications noted on the ultrasound. Discharge - Discharge Clinical Impression: Second trimester , Obstetric problem in patient at less than 20 weeks gestation Condition: Stable Disposition: HOME, SELF-CARE Additional Instructions: You are . care is best started as early in as possible. If you're unsure about continuing this , you should discuss this with your physician or with surfacing technician at [facility]. You should take only medications approved by your physician. Acetaminophen can safely be taken for minor pains. As a rule, medication for chronic conditions such as asthma or seizures can safely be continued. You should discuss with the physician every medicine you take. Any regular exercise program can be continued. Talk to your physician, however, before engaging in competitive or demanding sports. Alcohol, smoking, and "street drugs" are dangerous to your baby. Cocaine is especially dangerous. Don't use any illicit drugs! Referrals: MIGUEL ADAM MD [Primary Care Provider] - Follow up as needed I personally performed the services described in the documentation, reviewed and edited the documentation which was dictated to the scribe in my presence, and it accurately records my words and actions.
[2019-07-08 14:26] VITALS: BP 98/54
== END 2019-07-08 14:25 | disposition home or self-care (01) ==
LOC: ER 11:42
DX: O20.9 Hemorrhage in early pregnancy, unspecified (principal); O36.8120 Decreased fetal movements, second trimester, not applicable or unspecified; O26.892 Other specified pregnancy related conditions, second trimester; N89.8 Other specified noninflammatory disorders of vagina; O99.89 Other specified diseases and conditions complicating pregnancy, childbirth and the puerperium; M54.5 Low back pain; Z3A.15 15 weeks gestation of pregnancy; Z88.6 Allergy status to analgesic agent; Z88.5 Allergy status to narcotic agent; Z88.0 Allergy status to penicillin
CPT/HCPCS: 36415; 76815; 80053; 85025; 99284

== ENCOUNTER 2019-12-26 05:06 | Inpatient (IN) | payer MEDICAID ==
[2019-12-20 10:42] LABS: ABSOLUTE BASOPHILS # (AUTO) 0.1 10^3/uL (0.0-0.2); ABSOLUTE EOSINOPHILS # (AUTO) 0.1 10^3/uL (0.0-0.6); ABSOLUTE LYMPHOCYTES (AUTO) 1.8 10^3/uL (0.5-4.7); ABSOLUTE MONOCYTES (AUTO) 0.6 10^3/uL (0.1-1.4); ABSOLUTE NEUT (AUTO) 8.6 10^3/uL (1.7-8.2); BASOPHILS % (AUTO) 0.6 % (0-2); EOSINOPHILS % (AUTO) 1.2 % (0-6); HEMOGLOBIN 9.5 g/dL (12.0-15.5); MEAN CORPUSCULAR HGB CONC 33.7 g/dL (32.0-36.0); MEAN CORPUSCULAR VOLUME 83 fl (80-97); MONOCYTES % (AUTO) 5.2 % (3-13); PLATELET COUNT 246 10^3/uL (150-450); RED BLOOD COUNT 3.38 10^6/uL (3.72-5.28); RED CELL DISTRIBUTION WIDTH 14.1 % (11.5-14.0); TOTAL CELLS COUNTED % (AUTO) 100 %; WHITE BLOOD COUNT 11.2 10^3/uL (4.0-10.5)
[2019-12-20 10:46] LABS: APPEARANCE,URINE CLEAR; BILIRUBIN,URINE NEGATIVE (NEGATIVE); COLOR,URINE YELLOW; GLUCOSE, URINE NEGATIVE (NEGATIVE); KETONES,URINE NEGATIVE (NEGATIVE); LEUKOCYTE ESTERASE,URINE NEGATIVE (NEGATIVE); NITRITE,URINE NEGATIVE (NEGATIVE); PROTEIN,URINE NEGATIVE (NEGATIVE); URINE SPECIFIC GRAVITY 1.015; UROBILINOGEN,URINE NEGATIVE mg/dL (<2.0)
[2019-12-20 11:18] LABS: URINE AMPHETAMINES SCREEN NEGATIVE; URINE BARBITURATES SCREEN NEGATIVE; URINE BENZODIAZEPINES SCREEN NEGATIVE; URINE COCAINE SCREEN NEGATIVE; URINE METHADONE SCREEN NEGATIVE; URINE PHENCYCLIDINE SCREEN NEGATIVE
[2019-12-20 13:05] LABS: URINE MARIJUANA (THC) SCREEN UNCONFIRMED POSITIVE
[~2019-12-26 05:06] MED LIST: AZITHROMYCIN 500 MG in DEXTROSE 5%-WATER 250 ML IV PRN; LACTATED RINGERS 1000 ML IV PRN; LIDOCAINE 0.5% INJ-PF (5 MG/ML) 50 ML SDV SUBCUT PRN; RINGERS SOLUTION,LACTATED 1,500 ML IV PRN
[2019-12-26] MEDS ORDERED: KETOROLAC TROMETHAMINE INJ/PF 30 MG/1 ML SDV ONE (07:06)
[2019-12-26] MEDS ORDERED: FENTANYL CITRATE INJ/PF 100 MCG/2 ML AMPUL ONE (07:06)
[2019-12-26] MEDS ORDERED: OXYTOCIN 10 UNIT/ML VIAL ONE (07:06)
[2019-12-26] MEDS ORDERED: EPHEDRINE SULFATE INJ 50 MG/1 ML AMPULE ONE (07:06)
[2019-12-26] MEDS ORDERED: ACETAMINOPHEN 1,000 MG/100 ML RTUPB IV ONE (07:06)
[2019-12-26] MEDS ORDERED: OXYTOCIN/0.9 % SODIUM CHLORIDE 30 UNIT/500 ML RTUINJ ONE (07:06)
[2019-12-26] MEDS ORDERED: PHENYLEPHRINE HCL INJ/PF 10 MG/1 ML SDV ONE (07:06)
[2019-12-26] MEDS ORDERED: MIDAZOLAM 2 MG/2 ML INJ ONE ×2 (07:06→08:36)
[2019-12-26] MEDS ORDERED: ONDANSETRON HCL INJ/PF 4 MG/2 ML SDV ONE (07:07)
[2019-12-26] MEDS ORDERED: PROMETHAZINE HCL INJ 25 MG/1 ML VIAL IV PRN ×3 (08:22→08:57)
[2019-12-26] MEDS ORDERED: OXYCODONE-ACETAMINOPHEN 5-325 MG TABLET PO PRN ×3 (08:22→08:57)
[2019-12-26] MEDS ORDERED: MEPERIDINE HCL/PF INJ 25 MG/1 ML DISP.SYRIN IV PRN (08:22)
[2019-12-26] MEDS ORDERED: ONDANSETRON HCL INJ/PF 4 MG/2 ML SDV IV PRN (08:22)
[2019-12-26] MEDS ORDERED: FENTANYL CITRATE INJ/PF 100 MCG/2 ML AMPUL IV PRN ×3 (08:22)
[2019-12-26] MEDS ORDERED: DIPHENHYDRAMINE HCL 50 MG/ML VIAL IV PRN (08:22)
[2019-12-26] MEDS ORDERED: SIMETHICONE 80 MG TAB.CHEW PO PRN (08:57)
[2019-12-26] MEDS ORDERED: RINGERS SOLUTION,LACTATED 1,000 ML IV PRN (08:57)
[2019-12-26] MEDS ORDERED: OXYTOCIN/0.9 % SODIUM CHLORIDE 30 UNIT/500 ML RTUINJ IV PRN (08:57)
[2019-12-26] MEDS ORDERED: ACETAMINOPHEN 325 MG TABLET PO PRN (08:57)
[2019-12-26] MEDS ORDERED: DIPH/PERTUSS(ACELL)/TETANUS VAC/PF 0.5 ML SYR (>=10YO) IM PRN (08:57)
[2019-12-26] MEDS ORDERED: MEASLES,MUMPS&RUBELLA VACC/PF 0.5 ML VIAL SUBCUT PRN (08:57)
[2019-12-26] MEDS ORDERED: ACETAMINOPHEN 1,000 MG/100 ML RTUPB IV PRN (08:57)
--- NOTE | 2019-12-26 09:02 | Operative Report ---
Operative Report DATE OF SURGERY: 12/26/19 PREOPERATIVE DIAGNOSIS: IUP at 39 weeks and 2 days previous x2 undesi red fertility POSTOPERATIVE DIAGNOSIS: Same OPERATION: Repeat low transverse hysterotomy section SURGEON: STANLEY MOORE ANESTHESIA: Spinal TISSUE REMOVED OR ALTERED: Bilateral fallopian tube segments COMPLICATIONS: None ESTIMATED BLOOD LOSS: 850 cc INTRAOPERATIVE FINDINGS: Female cephalic presentation Apgars of 8 and 9 normal fallopian tubes and ovaries dense scar tissue of the rectus muscle to the fascia PROCEDURE: The patient was taken to the operating room, prepared and draped in anormal sterile fashion in a supine position with a leftward tilt. A transverse skin incision was made with a scalpel and carried through tothe underlying layer of fascia with the same scalpel. The fascia was excised in the midline and extended laterally with Catalina. The fascia was then dissected from the rectus muscle sharply with Catalina and the rectus muscle was divided and the peritoneal cavity was entered sharply with the same Metzenbaum. With good visualization of the bladder and the uterus the bladder blade was inserted. The hysterotomy was nicked with a scalpel and extended laterally with surgeon finger fraction. The was thendelivered atraumatically. The nose and mouth were suctioned with a suction bulb, the cord was clamped and cut and handed off to awaiting pediatricians. Cord blood was collected. The placenta was removed manually. The uterus was exteriorized and cleared of clots and debris. The hysterotomy was closed with 0 Monocryl in a running, locked fashion. A second layer of the same suture was used to imbricate to ensure hemostasis. Attention was then turned to the fallopian tubes where the right fallopian tube was grasped with a Antelope, the mesosalpinx was divided with a Bovie. a 3-1/2 cm segment of fallopian tube was tied off with 2 pieces of 2-0 chromic.this segment was ligated using Metzenbaums and the pedicles were made hemostatic with the Bovie. This procedure was repeated on the left fallopian tube without difficulty. The uterus was returned to the abdomen and peritoneal cavity was cleared of clots and debris. The pedicles were inspected and they were still hemostatic. The rectus muscle and peritoneum were repaired with mattress stitch of 2-0 Chromic. The fascia was closed with 0-Vicryl. The subcutaneous layer was closed with plain catgut and the skin was closed with 4-0 Vicryl. The patient tolerated the procedure well. Sponge, lap, and needle counts correct x2 and the patient was taken to recovery in stable condition.
[2019-12-26] MEDS ORDERED: MORPHINE SULFATE 10 MG/ML INJ ONE (09:49)
[2019-12-26] MEDS ORDERED: MORPHINE SULFATE 10 MG/ML INJ IV ONE (10:47)
[2019-12-26] MEDS: MORPHINE SULFATE 10 MG/ML INJ IV PRN ×3 (10:48→21:29)
[2019-12-26] MEDS: PRENATAL VITAMIN W DHA CAPSULE PO SCH (11:53)
[2019-12-26] MEDS: DOCUSATE SODIUM 100 MG CAPSULE PO SCH ×2 (11:53→17:48)
[2019-12-26] MEDS: KETOROLAC TROMETHAMINE INJ/PF 30 MG/1 ML SDV IV SCH ×2 (13:10→21:12)
[2019-12-26] MEDS: OXYCODONE-ACETAMINOPHEN 5-325 MG TABLET PO PRN ×2 (18:59→23:08)
[2019-12-27] MEDS: OXYCODONE-ACETAMINOPHEN 5-325 MG TABLET PO PRN ×4 (03:40→18:10)
[2019-12-27] MEDS: IBUPROFEN 800 MG TABLET PO SCH ×4 (05:24→23:15)
[2019-12-27 08:30] LABS: HEMATOCRIT 24.7 % (36.0-47.0); HEMOGLOBIN 8.3 g/dL (12.0-15.5); MEAN CORPUSCULAR HEMOGLOBIN 27.8 pg (27.0-33.4); MEAN CORPUSCULAR HGB CONC 33.7 g/dL (32.0-36.0); MEAN CORPUSCULAR VOLUME 83 fl (80-97); PLATELET COUNT 224 10^3/uL (150-450); RED CELL DISTRIBUTION WIDTH 14.3 % (11.5-14.0); WHITE BLOOD COUNT 10.9 10^3/uL (4.0-10.5)
[2019-12-27] MEDS: DOCUSATE SODIUM 100 MG CAPSULE PO SCH ×2 (09:38→18:11)
[2019-12-27] MEDS: PRENATAL VITAMIN W DHA CAPSULE PO SCH (09:38)
[2019-12-27] MEDS ORDERED: IBUPROFEN 800 MG TABLET PO SCH (12:00)
--- NOTE | 2019-12-27 14:50 | PDOC PROGRESS REPORT ---
Subjective-OB Progress Note for:: 12/27/19 Subjective: 39yo s/p primary ppd1 reports pain well controlled with medication. Voiding and ambulating without difficulty, denies any concerns at this time. Physical Exam (OB) Vital Signs: Temp Pulse Resp BP Pulse Ox 98.2 F 84 16 114/74 99 12/27/19 11:45 12/27/19 11:45 12/27/19 11:45 12/27/19 11:45 12/27/19 11:45 Intake & Output 12/26/19 12/27/19 12/28/19 06:59 06:59 06:59 Intake Total 1200 400 Output Total 4850 Balance -3650 400 Weight 75.5 kg - General General Appearance: Appears well In distress: None - PIH/Pre-Eclampsia DTR's: 2 + Clonus: Negative Headache: Absent Epigastric Pain: No Visual Changes: No - Dressing Removed: No Incision: Dressing Closure Type: pressure - Bilateral Tubal Ligation Dressing Removed: No - Maternal Morbidity 59. Maternal Morbidity (serious complications experinced by the mother associated with labor and delivery: None of the above - Lochia Lochia Amount: Scant < 10 ml Lochia Color: Rubra/Red - Abdomen Description: Soft Hernia Present: No Fundal Description: Firm, Midline Describe if Not Midline: firm and midline after palpation and troubleshooting garcia Fundal Height: u/u - u/2 - Respiratory Respiratory Status: No respiratory distress - Extremities Upper extremity: Normal inspection Lower extremities: Normal inspection - Neurological Cognition: Normal Orientation: AAOx4 - Psychological Associated symptoms: Normal affect, Normal mood Objective-Diagnostic Laboratory: 12/27/19 07:46 12/27/19 07:46 WBC 10.9 H RBC 3.00 L Hgb 8.3 L Hct 24.7 L MCV 83 MCH 27.8 MCHC 33.7 RDW 14.3 H Plt Count 224 Assessment and Plan(PN) - Assessment and Plan (1) Drug use affecting Qualifiers: Trimester: unspecified trimester Qualified Code(s): O99.320 - Drug use com plicating , unspecified trimester Is this a current diagnosis for this admission?: Yes Plan: cessation encouraged (2) Tubal ligation status Is this a current diagnosis for this admission?: Yes Plan: routine pp care (3) Advanced maternal age (AMA) in Is this a current diagnosis for this admission?: Yes Plan: delivered (4) Anemia affecting Qualifiers: Trimester: unspecified trimester Qualified Code(s): O99.019 - Anemia complicating , unspecified trimester Is this a current diagnosis for this admission?: Yes Plan: increase dietary iron and FeSO4 qd (5) Smoker Is this a current diagnosis for this admission?: Yes Plan: cessation encouraged (6) Status post repeat low transverse section Is this a current diagnosis for this admission?: Yes Plan: routine pp care - Time Spent with Patient Time with patient: Less than 15 minutes Smoking Education Provided: Over 3 minutes Medications reviewed and adjusted accordingly: Yes - Disposition Anticipated Discharge Disposition: Home, Self Care Anticipated Discharge Timeframe: within 24 hours
[2019-12-28] MEDS: IBUPROFEN 800 MG TABLET PO SCH (05:58)
[2019-12-28 08:50] VITALS: BP 116/74
[2019-12-28] MEDS: PRENATAL VITAMIN W DHA CAPSULE PO SCH (09:08)
[2019-12-28] MEDS: DOCUSATE SODIUM 100 MG CAPSULE PO SCH (09:09)
--- NOTE | 2019-12-28 09:41 | PDOC PROGRESS REPORT ---
Subjective-OB Progress Note for:: 12/28/19 Subjective: ready for discharge. Physical Exam (OB) Vital Signs: Temp Pulse Resp BP Pulse Ox 98.1 F 89 18 116/74 99 12/28/19 08:00 12/28/19 08:00 12/28/19 08:00 12/28/19 08:00 12/28/19 08:00 Intake & Output 12/27/19 12/28/19 12/29/19 06:59 06:59 06:59 Intake Total 1200 1440 Output Total 4850 Balance -3650 1440 - PIH/Pre-Eclampsia DTR's: 2 + Clonus: Negative Headache: Absent Epigastric Pain: No Visual Changes: No - Dressing Removed: No Incision: Well Approximated Closure Type: Surgical Glue - Bilateral Tubal Ligation Dressing Removed: No - Maternal Morbidity 59. Maternal Morbidity (serious complications experinced by the mother associated with labor and delivery: None of the above - Lochia Lochia Amount: Small 10-25 ml Lochia Color: Rubra/Red - Abdomen Description: Soft Hernia Present: No Bowel Sounds: Normoactive Flatus Presence: Present Stool: No Fundal Description: Firm, Non-Midline Describe if Not Midline: right tilt, MD notified Fundal Height: u/u - u/2 Objective-Diagnostic Laboratory: 12/27/19 07:46 Assessment and Plan(PN) - Time Spent with Patient Time with patient: 15-25 minutes Smoking Education Provided: Over 3 minutes Medications reviewed and adjusted accordingly: Yes - Disposition Anticipated Discharge Disposition: Home, Self Care Anticipated Discharge Timeframe: within 24 hours
--- NOTE | 2019-12-28 09:50 | PDOC DISCHARGE SUMMARY ---
Impression - Admit/DC Date/PCP Admission Date/Primary Care Provider: 12/26/19 05:06 STANLEY MOORE MD Discharge Date: 12/28/19 - Discharge Diagnosis (1) Advanced maternal age (AMA) in Is this a current diagnosis for this admission?: Yes (2) Delivery by elective caesarean section Is this a current diagnosis for this admission?: Yes (3) Depression with anxiety Is this a current diagnosis for this admission?: Yes (4) Drug use affecting Is this a current diagnosis for this admission?: Yes (5) Is this a current diagnosis for this admission?: Yes (6) Tubal ligation status Is this a current diagnosis for this admission?: Yes - Additional Information Resuscitation Status: Full Code Discharge Diet: Regular Discharge Activity: Activity As Tolerated, Balance Activity w/Rest, No Lifting Over 10 Pounds, No Lifting/Push/Pulling, Non-Ambulatory Child, Pelvic Rest, Slowly Increase Activity, No tub bath Referrals: STANLEY MOORE MD [Primary Care Provider] - Prescriptions: Oxycodone HCl/Acetaminophen [Percocet 5-325 mg Tablet] 1 tab PO Q4HP PRN #20 tablet PRN Reason: Docusate Sodium [Colace 100 mg Capsule] 100 mg PO BID #30 capsule Ibuprofen [Motrin 800 mg Tablet] 800 mg PO Q6 #30 tablet Home Medications: Ferrous Sulfate [Ferosul] 325 mg PO DAILY 12/20/19 Prenat 115/Iron Fum/Folic/Dss [ 19 Tablet] 1 each PO DAILY 12/20/19 Docusate Sodium [Colace 100 mg Capsule] 100 mg PO BID #30 capsule 12/28/19 Ibuprofen [Motrin 800 mg Tablet] 800 mg PO Q6 #30 tablet 12/28/19 Oxycodone HCl/Acetaminophen [Percocet 5-325 mg Tablet] 1 tab PO Q4HP PRN #20 tablet 12/28/19 HPI Gestational Age: 39 wks Reason(s) for Admission: Ceasarean Section-Repeat, Tubal Ligation Procedures: Ultrasound Intrapartum Procedure(s): : Low Cervical, Transverse Hospital Course 59. Maternal Morbidity (serious complications experinced by the mother associated with labor and delivery: None of the above Results Laboratory Results: WBC 10.9 10^3/uL (4.0-10.5) H 12/27/19 07:46 RBC 3.00 10^6/uL (3.72-5.28) L 12/27/19 07:46 Hgb 8.3 g/dL (12.0-15.5) L 12/27/19 07:46 Hct 24.7 % (36.0-47.0) L 12/27/19 07:46 MCV 83 fl (80-97) 12/27/19 07:46 MCH 27.8 pg (27.0-33.4) 12/27/19 07:46 MCHC 33.7 g/dL (32.0-36.0) 12/27/19 07:46 RDW 14.3 % (11.5-14.0) H 12/27/19 07:46 Plt Count 224 10^3/uL (150-450) 12/27/19 07:46 Lymph % (Auto) 16.0 % (13-45) 12/20/19 10:10 [place] % (Auto) 5.2 % (3-13) 12/20/19 10:10 Eos % (Auto) 1.2 % (0-6) 12/20/19 10:10 Baso % (Auto) 0.6 % (0-2) 12/20/19 10:10 Absolute Neuts (auto) 8.6 10^3/uL (1.7-8.2) H 12/20/19 10:10 Absolute Lymphs (auto) 1.8 10^3/uL (0.5-4.7) 12/20/19 10:10 Absolute Monos (auto) 0.6 10^3/uL (0.1-1.4) 12/20/19 10:10 Absolute Eos (auto) 0.1 10^3/uL (0.0-0.6) 12/20/19 10:10 Absolute Basos (auto) 0.1 10^3/uL (0.0-0.2) 12/20/19 10:10 Seg Neutrophils % 77.0 % (42-78) 12/20/19 10:10 Urine Color YELLOW 12/20/19 10:10 Urine Appearance CLEAR 12/20/19 10:10 Urine pH 7.0 (5.0-9.0) 12/20/19 10:10 Ur Specific [place] 1.015 12/20/19 10:10 Urine Protein NEGATIVE mg/dL (NEGATIVE) 12/20/19 10:10 Urine Glucose (UA) NEGATIVE mg/dL (NEGATIVE) 12/20/19 10:10 Urine Ketones NEGATIVE mg/dL (NEGATIVE) 12/20/19 10:10 Urine Blood NEGATIVE (NEGATIVE) 12/20/19 10:10 Urine Nitrite NEGATIVE (NEGATIVE) 12/20/19 10:10 Urine Bilirubin NEGATIVE (NEGATIVE) 12/20/19 10:10 Urine Urobilinogen NEGATIVE mg/dL (<2.0) 12/20/19 10:10 Ur Leukocyte Esterase NEGATIVE (NEGATIVE) 12/20/19 10:10 Urine WBC (Auto) 1 /HPF 12/20/19 10:10 Urine RBC (Auto) 1 /HPF 12/20/19 10:10 Squamous Epi Cells Auto 3 /HPF 12/20/19 10:10 Urine Mucus (Auto) RARE /LPF 12/20/19 10:10 Urine Ascorbic Acid NEGATIVE (NEGATIVE) 12/20/19 10:10 Urine Opiates Screen NEGATIVE 12/20/19 10:10 Urine Methadone Screen NEGATIVE 12/20/19 10:10 Ur Barbiturates Screen NEGATIVE 12/20/19 10:10 Ur Phencyclidine Scrn NEGATIVE 12/20/19 10:10 Ur Amphetamines Screen NEGATIVE 12/20/19 10:10 U Benzodiazepines Scrn NEGATIVE 12/20/19 10:10 Urine Cocaine Screen NEGATIVE 12/20/19 10:10 U Marijuana (THC) Screen UNCONFIRMED POSITIVE 12/20/19 10:10 COVID-19 Source NASOPHARYNGEAL 12/20/19 10:10 COVID-19 (RUI) Not Detected (Not Detect) 12/20/19 10:10 Blood Type B POSITIVE 12/25/19 15:41 Antibody Screen NEGATIVE 12/25/19 15:41 Plan Plan of Treatment: Follow up at [facility] in 1 wk or prn. Time Spent: Less than 30 Minutes
== END 2019-12-28 13:35 | disposition home or self-care (01) | DRG 785 ==
LOC: 2S 05:06
PROVIDERS: ADMIT Obstetrics & Gynecology; ATTEND Obstetrics & Gynecology
PROC: 10D00Z1 Extraction of Products of Conception, Low, Open Approach (ICD-10-PCS; principal; 2019-12-26)
PROC: 0UB70ZZ Excision of Bilateral Fallopian Tubes, Open Approach (ICD-10-PCS; 2019-12-26)
DX: O34.211 Maternal care for low transverse scar from previous cesarean delivery (principal); O99.344 Other mental disorders complicating childbirth; F41.9 Anxiety disorder, unspecified; F32.9 Major depressive disorder, single episode, unspecified; Z30.2 Encounter for sterilization; Z3A.39 39 weeks gestation of pregnancy; Z37.0 Single live birth; Z79.899 Other long term (current) drug therapy; Z88.0 Allergy status to penicillin
CPT/HCPCS: 1961; 36415; 59025; 80307; 81001; 85025; 85027; 86850; 86900; 86901; 87635; 88302; 94799; C9803; J0131; J0456; J1885; J2250; J2270; J2370; J2405; J2590; J3010; J3490; J7060; J7120